=== PATIENT | female | born 1995 | race Caucasian/White ===

== ENCOUNTER 2021-01-16 06:17 | Emergency (ER) | payer BC, SELFPAY ==
[2021-01-16 06:21] VITALS: BP 160/87; PULSE 90; RESP 20; TEMP 36.6; O2SAT 99
--- NOTE | 2021-01-16 07:04 | ED.EYEPROB ---
HPI - Eye Problem General Chief complaint: Eye Problems Stated complaint: eye swollen Time Seen by Provider: 01/16/21 07:03 Source: patient Mode of arrival: ambulatory Limitations: no limitations History of Present Illness HPI Narrative: Patient is a 25-year-old female who reports to the emergency department for evaluation of left eye irritation. Patient states she had a large bump by her left eye which has now progressed to swelling and to around the left eye and left cheek. She reports redness. No current drainage from the site. Patient has a history of skin infection in the past and required antibiotics. Patient seen previous to this at [facility], states she had a inflamed follicle and was discharged home. Patient denies fever, chills, nausea or vomiting. No current shortness of breath. She is able to swallow. No vision changes. Related Data Allergies Allergy/AdvReac Type Severity Reaction Status Date / Time No Known Allergies Allergy Verified 01/16/21 06:26 Review of Systems Review of Systems: Narrative: CONSTITUTIONAL: Denies fever CARDIOVASCULAR: Denies chest pain RESPIRATORY: Denies cough or dyspnea. GASTROINTESTINAL: Denies abdominal pain SKIN: Denies rash, reports lesion on the outside of the left eye, reports facial swelling MUSCULOSKELETAL: Denies back pain NEUROLOGIC: Denies headache [facility] Social History Social History (Updated 01/16/21 @ 07:29 by Aleena Fernandez MD) Alcohol intake: never Substance use: current Substance use type: marijuana Gender identity (if verbalized by the patient): Female Exam Narrative: Exam Narrative: GENERAL: Awake, alert, conversant HEAD: Normocephalic, atraumatic. EYES: PERRLA and EOMI. indurated area approximately 1.5 cm lateral to the left eye, minimal erythema, mild left-sided facial edema, without erythema, no purulent discharge ENT: Nares clear, no rhinorrhea or epistaxis. Mucous membranes moist. NECK: Supple. CHEST: No respiratory distress, breathing even and non labored HEART: Regular rate, sinus rhythm ABDOMEN:Non distended, non tender EXTREMITIES: Normal range of motion. No edema. SKIN: Warm, dry, no rash. NEURO:No focal deficits. Alert and oriented x3 Course Vital Signs Vital signs: Vital Signs Temperature 36.6 C 01/16/21 06:21 Pulse Rate 90 01/16/21 06:21 Respiratory Rate 20 01/16/21 06:21 Blood Pressure 160/87 H 01/16/21 06:21 Pulse Oximetry 99 01/16/21 06:21 Temperature 36.6 C 01/16/21 06:21 Pulse Rate 90 01/16/21 06:21 Respiratory Rate 20 01/16/21 06:21 Blood Pressure 160/87 H 01/16/21 06:21 Pulse Oximetry 99 01/16/21 06:21 MDM - Eye Problem MDM Narrative Medical decision making narrative: On exam, patient is presenting for irritation to the left eye that does seem most consistent with an early infection/abscess. Patient does have some mild edema of the left orbit and cheek area. No symptoms to be suggestive of preseptal or orbital cellulitis at this point. There is no current fluid collection that would require drainage. No evidence of necrotizing infection. No airway compromise or respiratory distress. After shared decision-making, we will do a watch and wait prescription with Keflex. Given the patient's history of skin infection, she has high risk for this. I did explain to the patient that this antibiotic may not cover all the bacteria that could be causing this, she did not have improvement within the next 72 hours to return for reassessment and possibly broadening of antibiotics. Patient then discharged home in stable condition. Discharge Plan Discharge Clinical Impression: Boil, face Patient Disposition: Home, Self-Care Condition: Stable Instructions: Antibiotic Form, Abscess (ED) Additional Instructions: You have no sign of severe infection at this point. Please give the antibiotic 72 hours to take effect. If you have no improvement by Friday, please contact your primar
[2021-01-16 07:41] VITALS: BP 143/83; PULSE 73; RESP 18; TEMP 36.7; O2SAT 98
== END 2021-01-16 07:42 | disposition home or self-care (01) ==
PROVIDERS: Emergency Provider Emergency Medicine; PCP Physician Assistant
DX: L02.02 Furuncle of face (principal)
CPT/HCPCS: 99283

== ENCOUNTER 2021-04-26 16:59 | Emergency (ER) | payer BC, SELFPAY ==
--- NOTE | ~2021-04-26 | XR_ITS ---
EXAMINATION: XR foot RT min 3V DATE: 04/26/2021 17:37 INDICATION: Anterior and lateral right foot pain after dog cage fell on the foot. TECHNIQUE: Dorsoplantar, two oblique and lateral views of the right foot were obtained. COMPARISON: None. FINDINGS: Alignment is normal. No fracture. Joint spaces are normal. Soft tissues are unremarkable. IMPRESSION: 1. Negative right foot radiographs. Reviewed, dictated and finalized at location A.
[2021-04-26 17:05] VITALS: BP 128/75; PULSE 106; RESP 18; TEMP 36.4; O2SAT 100
--- NOTE | 2021-04-26 17:47 | ED.GENADULT ---
HPI - General Adult General Chief complaint: Extremity Injury, Lower Stated complaint: RT FOOT PAIN Time Seen by Provider: 04/26/21 17:08 Source: patient Mode of arrival: ambulatory Limitations: no limitations History of Present Illness HPI narrative: Patient presents with chief complaint of pain to the anterior aspect of her right foot that began earlier today when her foot was prescribed cage. Patient reports pain with plantar and dorsiflexion. Patient denies any other injuries. Patient denies prior fractures to the area. Related Data Allergies Allergy/AdvReac Type Severity Reaction Status Date / Time No Known Allergies Allergy Verified 04/26/21 17:07 Review of Systems Review of Systems: CONSTITUTIONAL: Denies fever, chills, or sweats. EYES: Denies visual changes, redness, or discharge. ENT: Denies rhinorrhea, congestion, sore throat, or otalgia. CARDIOVASCULAR: Denies chest pain, palpitations, or edema. RESPIRATORY: Denies cough or dyspnea. GASTROINTESTINAL: Denies abdominal pain, nausea, vomiting, or diarrhea. GENITOURINARY: Denies dysuria or hematuria. SKIN: Denies rash or itching. MUSCULOSKELETAL: Reports right foot pain denies back pain, joint pain, or myalgia. NEUROLOGIC: Denies headache, numbness, dizziness, or weakness. PSYCHIATRIC: Denies anxiety or depression. [facility] Social History Social History (Updated 01/16/21 @ 07:29 by Aleena Fernandez MD) Alcohol intake: never Substance use: current Substance use type: marijuana Gender identity (if verbalized by the patient): Female Exam Narrative: GENERAL: Well-appearing, well-nourished, and in no acute distress. HEAD: Normocephalic, atraumatic. EYES: PERRLA and EOMI. CHEST: Clear to auscultation. No respiratory distress. No wheezes rales or rhonchi HEART: Regular rate and rhythm. No murmur heard. Normal peripheral pulses. EXTREMITIES: No open wounds or lacerations. Tenderness to palpation to the dorsal aspect of the right foot. Patient reports pain with plantar and dorsiflexion causing decreased range of motion. No deformities noted. SKIN: Warm, dry, no rash. NEURO: No focal deficits. Alert and oriented x3. PSYCH: Normal mood and affect. Course Vital Signs Vital signs: Vital Signs Temperature 97.5 F L 04/26/21 17:05 Pulse Rate 106 H 04/26/21 17:05 Respiratory Rate 18 04/26/21 17:05 Blood Pressure 128/75 04/26/21 17:05 Pulse Oximetry 100 04/26/21 17:05 Temperature 97.5 F L 04/26/21 17:05 Pulse Rate 106 H 04/26/21 17:05 Respiratory Rate 18 04/26/21 17:05 Blood Pressure 128/75 04/26/21 17:05 Pulse Oximetry 100 04/26/21 17:05 Medical Decision Making MDM Narrative Medical decision making narrative: No signs of fracture. Patient diagnosed with contusion. Patient instructed to elevate and take Tylenol ibuprofen for discomfort. Patient instructed to follow-up with primary care if symptoms persist. Vital Signs Vital Signs: Vital Signs Temperature 97.5 F L 04/26/21 17:05 Pulse Rate 106 H 04/26/21 17:05 Respiratory Rate 18 04/26/21 17:05 Blood Pressure 128/75 04/26/21 17:05 Pulse Oximetry 100 04/26/21 17:05 Temperature 97.5 F L 04/26/21 17:05 Pulse Rate 106 H 04/26/21 17:05 Respiratory Rate 18 04/26/21 17:05 Blood Pressure 128/75 04/26/21 17:05 Pulse Oximetry 100 04/26/21 17:05 Imaging Data Radiologist's impression: ITS Impressions Foot X-Ray 04/26/21 17:41 IMPRESSION: 1. Negative right foot radiographs. Discharge Plan Discharge Clinical Impression: Contusion of right foot Patient Disposition: Home, Self-Care Condition: Stable Instructions: Antibiotic Form, Foot Contusion (ED) Additional Instructions: Take tylenol and ibuprofen OTC as directed if you can tolerate them. Apply cool compress to areas of swelling discomfort. You may apply warm moist compresses and gentle stretching as well. Avoid overuse. Follow-up with your primary care for
== END 2021-04-26 18:23 | disposition home or self-care (01) ==
PROVIDERS: Emergency Provider Emergency Medicine; PCP Physician Assistant
DX: S90.31XA Contusion of right foot, initial encounter (principal); W20.8XXA Other cause of strike by thrown, projected or falling object, initial encounter
CPT/HCPCS: 73630; 99283

== ENCOUNTER 2021-12-26 15:43 | Emergency (ER) | payer BC, MEDICAID, SELFPAY ==
--- NOTE | ~2021-12-26 | US_ITS ---
EXAMINATION: US OB <=14 wk fetus w TV INDICATION: R sided pelvic pain with VB r/o torsion/ectopic TECHNIQUE: Sonography of the pelvis was performed by transabdominal and transvaginal techniques. COMPARISON: None. RESULT: Uterus: - Orientation: Anteverted - Size: 9.7 x 5.5 x 4.4 cm - Myometrium: homogeneous echogenicity . Endometrial stripe 0.6 cm. Gestation: - Intrauterine gestational sac: Not seen Right ovary: - Size : 4.3 x 2.4 x 1.7 cm - Vascular flow is present. No adnexal mass. Left ovary: - Size: 2.8 x 2.5 x 2.2 cm - Vascular flow is present. No adnexal mass. Pelvis free fluid: None. IMPRESSION: No visible intrauterine gestational sac, which may be normal in early . Failed and ectopic are not excluded. Serial beta hCGs are recommended, with follow-up ultrasound as c linically warranted. Reviewed, dictated and finalized at location K. IMPRESSION: No visible intrauterine gestational sac, which may be normal in early . Failed and ectopic are not excluded. Serial beta hCGs are recommended, with follow-up ultrasound as clinically warranted.
[2021-12-26 15:58] VITALS: BP 138/89; PULSE 94; RESP 16; TEMP 36.6; O2SAT 100
[2021-12-26 16:18] LABS: Basophils Absolute Auto 0.1 K/mm3 (0.0-0.1); Basophils Percent Auto 0.5 % (0.2-1.2); Eosinophils Absolute Auto 0.1 K/mm3 (0-0.3); Eosinophils Percent Auto 1.4 % (0-4.4); Hemoglobin 15.5 g/dL (12.0-15.0); Immature Granulocyte Absolute 0.04 K/mm3 (0.00-0.031); Immature Granulocyte Percent A 0.4 % (0-0.5); Lymphocytes Absolute Auto 1.93 K/mm3 (0.9-3.2); Mean Corpuscular HGB Conc 34.4 g/dl (32-36); Mean Corpuscular Hemoglobin 30.4 pg (26-34); Mean Corpuscular Volume 88.2 fl (80-100); Mean Platelet Volume 10.2 fl (7.4-10.4); Monocytes Absolute Auto 0.3 K/mm3 (0.1-0.6); Monocytes Percent Auto 3.7 % (2.6-8.5); Neutrophils Absolute Auto 6.7 K/mm3 (1.3-6.7); Platelet Count Result 209 k/mm3 (150-375); Red Cell Distribution Width 13.3 % (11.5-14.5); White Blood Count 9.2 K/mm3 (4.5-10.0)
[2021-12-26 16:29] LABS: Add Urine Microscopic? YES; Appearance Urine Slightly Cloudy (Clear); Bilirubin Urine Negative (Negative); Blood Urine 3+ (Negative); Color Urine Red (Yellow); Glucose Urine UA Negative (Negative); Ketones Urine Negative (Negative); Leukocyte Esterase Ur Trace LEU/UL (Negative); Nitrate Urine Negative (Negative); Protein Urine 1+ mg/dL (Negative); Urobilinogen Urine 0.2 mg/dL (<2.0); pH Urine 7.5 (5.0-9.0)
[2021-12-26 16:37] LABS: Bacteria Urine Trace /hpf; RBC Urine >75 /hpf (0-2)
[2021-12-26 16:43] LABS: Beta HCG Quantitative 3.38 mIU/ML
--- NOTE | 2021-12-26 19:52 | PC.NURSE ---
[facility] ERP DR CAMPBELL, TYLENOL 1GM PO.
[2021-12-26] MEDS: ACETAMINOPHEN 500 MG TABLET 1000 MG PO (19:55)
[2021-12-26 19:57] VITALS: BP 142/83; PULSE 92; RESP 18; TEMP 36.8; O2SAT 99
[2021-12-26 21:03] VITALS: BP 111/69; PULSE 88; RESP 16; O2SAT 99
--- NOTE | 2021-12-26 21:30 | ED.FEMALEGU ---
HPI - Female Genitourinary General Chief complaint: Vaginal Bleeding Stated complaint: preg, vag bleeding Time Seen by Provider: 12/26/21 19:52 Source: patient History of Present Illness HPI Narrative: Patient presents with vaginal bleeding and a positive home test. Reports her last normal menstrual cycle was in October she had some mild spotting in November over the past 2 days she has had increasing pain and is passing large clots today so she came to the ER for evaluation. Her pain is primarily in her pelvis is constant is cramping no clear aggravating relieving factors, no radiation she denies any urinary symptoms. Denies any fevers, nausea, vomiting, diarrhea she took a positive home test a couple days ago Related Data Allergies Allergy/AdvReac Type Severity Reaction Status Date / Time No Known Allergies Allergy Verified 12/05/21 14:44 Review of Systems Review of Systems: CONSTITUTIONAL: Denies fever, chills, or sweats. EYES: Denies visual changes, redness, or discharge. ENT: Denies rhinorrhea, congestion, sore throat, or otalgia. CARDIOVASCULAR: Denies chest pain, palpitations, or edema. RESPIRATORY: Denies cough or dyspnea. GASTROINTESTINAL: Denies nausea, vomiting, or diarrhea. GENITOURINARY: Denies dysuria or hematuria. SKIN: Denies rash or itching. MUSCULOSKELETAL: Denies back pain, joint pain, or myalgia. NEUROLOGIC: Denies headache, numbness, dizziness, or weakness. PSYCHIATRIC: Denies anxiety or depression. [facility] Social History Social History Alcohol intake: never Substance use: current Substance use type: marijuana Gender identity (if verbalized by the patient): Female Exam Narrative: GENERAL: Well-appearing, well-nourished, and in no acute distress. HEAD: Normocephalic, atraumatic. EYES: PERRLA and EOMI. ENT: Nares clear, no rhinorrhea or epistaxis. Mucous membranes moist. NECK: Supple. No masses. No JVD CHEST: Clear to auscultation. No respiratory distress. No wheezes rales or rhonchi HEART: Regular rate and rhythm. No murmur heard. Normal peripheral pulses. ABDOMEN: Mild lower abdominal pain soft, nondistended. EXTREMITIES: Normal range of motion. No edema. SKIN: Warm, dry, no rash. NEURO: No focal deficits. Alert and oriented x3. PSYCH: Normal mood and affect. Course Reevaluation(s) Reevaluation #1: Patient resting comfortably results and plan reviewed with patient. Patient is comfortable outpatient plan. Date: 12/26/21 Time: 21:34 Vital Signs Vital signs: Vital Signs Temperature 36.6 C 12/26/21 15:58 Pulse Rate 94 12/26/21 15:58 Respiratory Rate 16 12/26/21 15:58 Blood Pressure 138/89 12/26/21 15:58 Pulse Oximetry 100 12/26/21 15:58 Oxygen Delivery Room Air 12/26/21 15:58 Temperature 36.8 C 12/26/21 19:57 Pulse Rate 88 12/26/21 21:03 Respiratory Rate 16 12/26/21 21:03 Blood Pressure 111/69 12/26/21 21:03 Pulse Oximetry 99 12/26/21 21:03 Oxygen Delivery Room Air 12/26/21 19:57 MDM - Female Genitourinary MDM Narrative Medical decision making narrative: H&P as above, vss, pt looks clinically well, exam with nonacute abdomen, labs low hCG UA with large amount of blood, img without acute process, additional labs/img considered, symptomatic relief available as needed, on reevaluation pt continues to looks clinically well. Suspect spontaneous miscarriage, dns significant hemorrhage, ectopic, torsion, severe sepsis plan to tx/monitor as op w/ pcm f/u findings/plan discussed with pt, pt agree/comfortable with plan, return precautions given Lab Data Result diagrams: 12/26/21 16:10 Labs: Lab Results 12/26/21 12/26/21 12/26/21 Range/Units 16:10 16:10 16:16 WBC 9.2 (4.5-10.0) K/mm3 RBC 5.10 (4.2-5.4) M/mm3 Hgb 15.5 H (12.0-15.0) g/dL Hct 45.0 (37.0-47.0) % MCV 88.2 (80-100) fl MCH 30.4 (26-34) pg MCHC 34.4 (32
== END 2021-12-26 21:52 | disposition home or self-care (01) ==
PROVIDERS: Emergency Provider Emergency Medicine; PCP Physician Assistant
DX: O03.9 Complete or unspecified spontaneous abortion without complication (principal); R10.30 Lower abdominal pain, unspecified
CPT/HCPCS: 36415; 76801; 76817; 81001; 81025; 84702; 85025; 85461; 87086; 99284; A9270

== ENCOUNTER 2022-02-07 17:31 | Outpatient (CLI) | payer BC, MEDICAID, SELFPAY | END 2022-02-07 17:32 | disposition home or self-care (01) | LOC: ANHLAB 17:34 | PROVIDERS: PCP Physician Assistant; Visit Provider Obstetrics & Gynecology | DX: N92.6 Irregular menstruation, unspecified (principal) | CPT/HCPCS: 36415; 84702 ==

== ENCOUNTER 2022-02-11 17:24 | Outpatient (CLI) | payer BC, MEDICAID, SELFPAY | END 2022-02-11 17:25 | disposition home or self-care (01) | PROVIDERS: PCP Physician Assistant; Visit Provider Obstetrics & Gynecology | DX: N92.6 Irregular menstruation, unspecified (principal) | CPT/HCPCS: 36415; 84702 ==

== ENCOUNTER 2022-05-07 03:49 | Emergency (ER) | payer MEDICAID, SELFPAY ==
[2022-05-07] VITALS (12 sets, daily range): BP systolic 107–142; BP diastolic 58–82; PULSE 64–90; RESP 15–21; O2SAT 96–99
[2022-05-07] MEDS: SODIUM CHLORIDE 0.9% IV 1,000 ML 999 ML IV CONT (04:21)
[2022-05-07 04:34] LABS: Basophils Absolute Auto 0.1 K/mm3 (0.0-0.1); Basophils Percent Auto 0.4 % (0.2-1.2); Eosinophils Absolute Auto 0.1 K/mm3 (0-0.3); Eosinophils Percent Auto 1.1 % (0-4.4); Hematocrit 38.5 % (37.0-47.0); Hemoglobin 13.9 g/dL (12.0-15.0); Immature Granulocyte Absolute 0.07 K/mm3 (0.00-0.031); Immature Granulocyte Percent A 0.6 % (0-0.5); Lymphocytes Absolute Auto 3.06 K/mm3 (0.9-3.2); Lymphocytes Percent Auto 24.1 % (18.3-44.2); Mean Corpuscular HGB Conc 36.1 g/dl (32-36); Mean Corpuscular Hemoglobin 31.8 pg (26-34); Mean Corpuscular Volume 88.1 fl (80-100); Mean Platelet Volume 10.6 fl (7.4-10.4); Monocytes Absolute Auto 0.6 K/mm3 (0.1-0.6); Monocytes Percent Auto 4.7 % (2.6-8.5); Neutrophils Absolute Auto 8.8 K/mm3 (1.3-6.7); Neutrophils Percent Auto 69.1 % (45.5-73.1); Platelet Count Result 212 k/mm3 (150-375); Red Blood Count 4.37 M/mm3 (4.2-5.4); Red Cell Distribution Width 13.4 % (11.5-14.5); White Blood Count 12.7 K/mm3 (4.5-10.0)
[2022-05-07 04:35] LABS: Appearance Urine Clear (Clear); Bilirubin Urine Negative (Negative); Blood Urine 1+ (Negative); Color Urine Yellow (Yellow); Glucose Urine UA Negative (Negative); Ketones Urine Negative (Negative); Leukocyte Esterase Ur 1+ LEU/UL (Negative); Nitrate Urine Negative (Negative); Protein Urine Negative (Negative); Urobilinogen Urine 0.2 mg/dL (<2.0)
--- NOTE | 2022-05-07 04:36 | ED.GENADULT ---
HPI - General Adult General Chief complaint: Abdominal Pain Stated complaint: 18 weeks abd cramping and migraine Time Seen by Provider: 05/07/22 03:59 History of Present Illness HPI narrative: 26-year-old female that is A2, that is approximately 18 weeks presents to the emergency department for evaluation of migraine and hypertension. Patient has been having close follow-up with her HEAD BOOKKEEPER and noticed over the last few weeks that her blood pressure has been running high. Patient states tonight at work she noticed her blood pressure was high and she is having a migraine headache. Patient does have a history of migraines but since she became the medications were stopped. Patient has been taking the vitamin and magnesium for headaches. Patient is also complaining of some abdominal cramping but denies any vaginal bleeding or discharge. Patient follows up Dr. Mcneil Related Data Allergies Allergy/AdvReac Type Severity Reaction Status Date / Time No Known Allergies Allergy Verified 05/07/22 04:06 Review of Systems Review of Systems: CONSTITUTIONAL: Denies fever, chills, or sweats. EYES: Denies visual changes, redness, or discharge. ENT: Denies rhinorrhea, congestion, sore throat, or otalgia. CARDIOVASCULAR: Denies chest pain, palpitations, or edema. RESPIRATORY: Denies cough or dyspnea. GASTROINTESTINAL: Abdominal cramping. GENITOURINARY: Denies dysuria or hematuria. SKIN: Denies rash or itching. MUSCULOSKELETAL: Denies back pain, joint pain, or myalgia. NEUROLOGIC: Migraine headache PMFSH Past Medical History Medical History Encounter for IUD insertion 04/30/17 Mirena insertion Encounter for IUD removal 02/09/18 Mirena removal Family History Family History Father Heart disease Hypertension Alcohol abuse Mother Hypertension Diabetes mellitus Cerebrovascular accident Grandparent Diabetes mellitus paternal grandfather maternal grandmother Social History Social History (Updated 02/27/22 @ 16:03 by Makayla Givens MA) Smoking packs per day: 0.25 Smoking cigarettes per day: 5.0 Smoking status: Current some day smoker Tobacco type: cigarettes Alcohol intake: never Substance use: former Substance use type: marijuana Last use: 08/04/2020 Additional living arrangements comments: Additional occupation/education comments: RN Gender identity (if verbalized by the patient): Female Sexual Orientation (if Verbalized by the Patient): Straight or Heterosexual Exam Narrative: APPEARANCE: Well appearing, no pain, no distress, well-nourished. HEAD: normocephalic, atraumatic. EYES: PERRLA/EOMI, conjunctivae clear. NOSE: Normal no drainage NECK: Supple. No adenopathy, no masses. RESPIRATORY: Airway patent, respirations nonlabored. Clear to auscultation bilaterally, no rales, rhonchi, wheezing. CARDIOVASCULAR: Regular rate and rhythm without murmurs rubs or gallops. ABDOMINAL: Soft, nontender, nondistended, normal bowel sounds MUSCULOSKELETAL: Moves all extremities. Strength/ROM intact, No edema, No calf tenderness. NEURO: Alert. Cranial nerves II through XII intact. Grossly intact SKIN: Warm, dry. Normal Color Course Course Emergency Course: Patient's blood pressure improved during her stay in the emergency department. Patient's liver enzymes were not elevated. Patient did have a mild leukocytosis of 12.7. Patient was treated with normal saline. No evidence of urinary tract infection. Urine culture is pending. Patient was encouraged to have close follow-up with her primary care physician and with her HEAD BOOKKEEPER as scheduled. All questions and concerns were addressed. Vital Signs Vital signs: Vital Signs Pulse Rate 90 05/07/22 03:59 Respiratory Rate 15 05/07/22 03:59 Blood Pressure 142/82 H 05/07/22 03:59 Pulse Oximetry 99 10
[2022-05-07 04:41] LABS: Bacteria Urine Trace /hpf; Mucus Urine Rare /lpf; RBC Urine 0-2 /hpf (0-2); Squamous Epithelial Cell Urine Few /hpf (Few); Transitional Epi Cells Urine Rare /hpf (None Seen)
[2022-05-07 04:44] LABS: Alanine Aminotransferase 20 U/L (6-35); Alkaline Phosphatase 65 U/L (38-126); Anion Gap 9 mmol/L (8-16); Aspartate Amino Transferase 21 U/L (14-36); Bilirubin,Total 0.2 mg/dL (0.2-1.3); Blood Urea Nitrogen 8 mg/dL (7-17); Carbon Dioxide 22 mmol/L (22-30); Chloride 101 mmol/L (98-107); Estimated CRCL calculation 128 ml/min; Estimated Glomerular Filt Rate > 60; Glucose 108 mg/dL (65-110); Potassium 3.2 mmol/L (3.4-5.0); Sodium 132 mmol/L (137-145)
[2022-05-07 04:47] LABS: Add Urine Microscopic? YES
[2022-05-07] MEDS: POTASSIUM CHLORIDE 20 MEQ PACKET (FOR LIQUID) 40 MEQ PO (05:44)
== END 2022-05-07 06:58 | disposition home or self-care (01) ==
PROVIDERS: Emergency Provider Emergency Medicine; PCP Physician Assistant
DX: O26.892 Other specified pregnancy related conditions, second trimester (principal); R51.9 Headache, unspecified; R10.9 Unspecified abdominal pain; Z3A.18 18 weeks gestation of pregnancy; Z87.891 Personal history of nicotine dependence
CPT/HCPCS: 36415; 80053; 81001; 85025; 87086; 87088; 96361; 96365; 99284; A9270; J0131; J7030

== ENCOUNTER 2022-08-12 22:52 | Observation (INO) | payer OTHER, SELFPAY ==
[2022-08-12 23:18] VITALS: BP 123/65; PULSE 105
[2022-08-12 23:30] VITALS: BP 131/68; PULSE 106; BMI 37.7
[2022-08-12 23:36] LABS: Basophils Percent Auto 0.2 % (0.2-1.2); Eosinophils Absolute Auto 0.1 K/mm3 (0-0.3); Eosinophils Percent Auto 0.4 % (0-4.4); Hematocrit 34.3 % (37.0-47.0); Hemoglobin 11.7 g/dL (12.0-15.0); Immature Granulocyte Absolute 0.08 K/mm3 (0.00-0.031); Immature Granulocyte Percent A 0.7 % (0-0.5); Lymphocytes Percent Auto 14.8 % (18.3-44.2); Mean Corpuscular HGB Conc 34.1 g/dl (32-36); Mean Corpuscular Hemoglobin 30.6 pg (26-34); Mean Corpuscular Volume 89.8 fl (80-100); Mean Platelet Volume 10.5 fl (7.4-10.4); Monocytes Absolute Auto 0.5 K/mm3 (0.1-0.6); Monocytes Percent Auto 3.7 % (2.6-8.5); Neutrophils Absolute Auto 9.8 K/mm3 (1.3-6.7); Neutrophils Percent Auto 80.2 % (45.5-73.1); Platelet Count Result 190 k/mm3 (150-375); Red Blood Count 3.82 M/mm3 (4.2-5.4); Red Cell Distribution Width 13.8 % (11.5-14.5); White Blood Count 12.2 K/mm3 (4.5-10.0)
[2022-08-12 23:37] LABS: Add Urine Microscopic? YES; Appearance Urine Clear (Clear); Bilirubin Urine Negative (Negative); Blood Urine Trace-Intact (Negative); Color Urine Yellow (Yellow); Glucose Urine UA Negative (Negative); Ketones Urine Trace mg/dL (Negative); Leukocyte Esterase Ur 1+ LEU/UL (NEGATIVE); Nitrate Urine Negative (Negative); Protein Urine Trace mg/dL (Negative); Specific Grav Ur 1.015 (1.001-1.035); Urobilinogen Urine 0.2 mg/dL (<2.0)
[2022-08-12 23:46] VITALS: BP 110/44; PULSE 102
[2022-08-12 23:54] LABS: Alanine Aminotransferase 17 U/L (6-35); Albumin Level 3.7 g/dL (3.5-5.1); Alkaline Phosphatase 118 U/L (38-126); Anion Gap 6 mmol/L (8-16); Aspartate Amino Transferase 21 U/L (14-36); Bilirubin,Total 0.3 mg/dL (0.2-1.3); Blood Urea Nitrogen 6 mg/dL (7-17); Calcium 8.5 mg/dL (8.4-10.2); Carbon Dioxide 20 mmol/L (22-30); Chloride 109 mmol/L (98-107); Estimated Glomerular Filt Rate > 60; Glucose 104 mg/dL (65-110); Potassium 3.2 mmol/L (3.4-5.0); Sodium 135 mmol/L (137-145); Uric Acid 4.3 mg/dL (2.5-7.5)
[2022-08-13] LABS: Creatinine Urine 166.2 mg/dL; Total Protein Urine Random 14 mg/dL; Ur Ttl Prot Creatinine Ratio 0.08 mg/mg (0-0.20)
[2022-08-13 00:01] VITALS: BP 96/25; PULSE 94
[2022-08-13 00:11] LABS: Bacteria Urine Trace /hpf; Mucus Urine Rare /lpf; Squamous Epithelial Cell Urine Many /hpf (Few)
[2022-08-13 00:15] VITALS: BP 117/65; PULSE 91
--- NOTE | 2022-08-13 00:17 | OBADM ---
This patient, Rosa Nevarez, admitted to the OB room OB Post 117 for observation. Patient/family oriented to hospital policies and general routines including ID bracelet, bed and alarms, visiting hours, pain management, procedures, bathroom and other care routines, personal items, smoking policy, room service/diet, and visiting hours. Patient/Family are encouraged to report perceived risks to care and to ask questions if they do not understand what they are told or what they should do.
--- NOTE | 2022-09-06 10:45 | PM.OBTRLD ---
OB - Triage/Final Diagnosis Visit Information Comments/Additional reasons for admission: I have assessed the risk for this patient, Rosa Nevarez, and determined that she would benefit from observation care. Evaluation Laboratory results: Laboratory Tests 08/12/22 08/12/22 08/12/22 23:17 23:17 23:17 WBC 12.2 H RBC 3.82 L Hgb 11.7 L Hct 34.3 L MCV 89.8 MCH 30.6 MCHC 34.1 RDW 13.8 Plt Count 190 MPV 10.5 H Immature Gran % (Auto) 0.7 H Neut % (Auto) 80.2 H Lymph % (Auto) 14.8 L [place] % (Auto) 3.7 Eos % (Auto) 0.4 Baso % (Auto) 0.2 Lymph # (Auto) 1.80 [place] # (Auto) 0.5 Eos # (Auto) 0.1 Baso # (Auto) 0.0 Abs Immat Gran (auto) 0.08 H Absolute Neuts (auto) 9.8 H Absolute Nucleated RBC 0.0 Nucleated RBC % 0.0 Sodium Potassium Chloride Carbon Dioxide Anion Gap BUN Creatinine Estim Creat Clear Calc Estimated GFR Glucose Uric Acid Calcium Total Bilirubin AST ALT Alkaline Phosphatase Total Protein Albumin Urine Color Yellow Urine Appearance Clear Urine pH 7.0 Ur Specific [place] 1.015 Urine Protein Trace Urine Glucose (UA) Negative Urine Ketones Trace Ur Blood (Man) Trace-intact Urine Nitrate Negative Urine Bilirubin Negative Urine Urobilinogen 0.2 Ur Leukocyte Esterase 1+ H Urine RBC 6-10 H Urine WBC 10-15 H Ur Squamous Epith Cells Many H Urine Bacteria Trace Urine Mucus Rare U Random Total Protein 14 Urine Creatinine 166.2 Protein/Creat Ratio 2 0.08 08/12/22 23:17 WBC RBC Hgb Hct MCV MCH MCHC RDW Plt Count MPV Immature Gran % (Auto) Neut % (Auto) Lymph % (Auto) [place] % (Auto) Eos % (Auto) Baso % (Auto) Lymph # (Auto) [place] # (Auto) Eos # (Auto) Baso # (Auto) Abs Immat Gran (auto) Absolute Neuts (auto) Absolute Nucleated RBC Nucleated RBC % Sodium 135 L Potassium 3.2 L Chloride 109 H Carbon Dioxide 20 L Anion Gap 6 L BUN 6 L Creatinine 0.60 L Estim Creat Clear Calc Not Reportable Estimated GFR > 60 Glucose 104 Uric Acid 4.3 Calcium 8.5 Total Bilirubin 0.3 AST 21 ALT 17 Alkaline Phosphatase 118 Total Protein 7.0 Albumin 3.7 Urine Color Urine Appearance Urine pH Ur Specific [place] Urine Protein Urine Glucose (UA) Urine Ketones Ur Blood (Man) Urine Nitrate Urine Bilirubin Urine Urobilinogen Ur Leukocyte Esterase Urine RBC Urine WBC Ur Squamous Epith Cells Urine Bacteria Urine Mucus U Random Total Protein Urine Creatinine Protein/Creat Ratio 2 Final Diagnosis (1) Headache: Code(s): R51.9 - Headache, unspecified Status: Acute
== END 2022-08-13 00:35 | disposition home or self-care (01) ==
PROVIDERS: Admitting Provider Obstetrics & Gynecology; PCP Physician Assistant; Visit Provider Obstetrics & Gynecology
DX: O26.893 Other specified pregnancy related conditions, third trimester (principal); R51.9 Headache, unspecified; O16.3 Unspecified maternal hypertension, third trimester; Z3A.32 32 weeks gestation of pregnancy
CPT/HCPCS: 36415; 80053; 81001; 82570; 84156; 84550; 85025; 87086; 87088; G0378; G0379

== ENCOUNTER 2022-08-30 10:28 | Outpatient (RCR) | payer OTHER, SELFPAY ==
[2022-08-30 11:50] VITALS: BP 129/69; PULSE 93
== END 2022-10-19 19:51 | disposition home or self-care (01) ==
LOC: ANHOBOP 10:28
PROVIDERS: PCP Physician Assistant; Visit Provider Obstetrics & Gynecology
DX: O36.8330 Maternal care for abnormalities of the fetal heart rate or rhythm, third trimester, not applicable or unspecified (principal); Z3A.35 35 weeks gestation of pregnancy
CPT/HCPCS: 59025

== ENCOUNTER 2022-09-25 12:31 | Outpatient (CLI) | payer BC, OTHER, SELFPAY ==
[2022-09-25] VITALS (7 sets, daily range): PULSE 86–112; O2SAT 97–99
--- NOTE | ~2022-09-25 | US_ITS ---
EXAMINATION: US OB BPP wo non-stress DATE: 09/25/2022 13:49 PATIENT SERVICES CLERK INDICATION: Decreased movements. TECHNIQUE: Real-time transabdominal obstetric ultrasound. FINDINGS: 08/30/2022 There is a single living fetus in vertex presentation. The placenta is anterior without placenta pre via. Cervical length measures 6.6 cm. cardiac activity and movement is noted with a heart rate of 153 beats per minute. A mniotic fluid index is normal measuring 12.3 cm. Biophysical profile: breathin of 2 movement: 2 of 2 tone: 2 of 2 Amniotic flud pocket: 2 of 2 Total score: 8 of 8 IMPRESSION: 1. Single living intrauterine in vertex presentation. 2: Total biophysical profile score of 8/8. Reviewed, dictated and finalized at location B. ENT SERVICES CLERK
== END 2022-09-25 14:10 | disposition home or self-care (01) ==
LOC: ANHOBOP 13:02 → ANHLDR 13:03
PROVIDERS: Visit Provider Obstetrics & Gynecology
DX: O36.8190 Decreased fetal movements, unspecified trimester, not applicable or unspecified (principal); Z3A.00 Weeks of gestation of pregnancy not specified
CPT/HCPCS: 59025; 76819; 84112; 99199

== ENCOUNTER 2022-09-26 05:52 | Inpatient (IN) | payer BC, OTHER, SELFPAY ==
[2022-09-26] VITALS (95 sets, daily range): BP systolic 105–146; BP diastolic 48–87; PULSE 60–121; RESP 16–18; TEMP 36.2–37.3; O2SAT 76–100; BMI 37.4
--- OUTSIDE RECORDS SUMMARY | 2022-09-26 05:57 | XMS_ITS | Clinical Summary ---
Author Name Unknown Address [address] [place] [address] Phone Organization [facility] Address [address] [place] [address] Phone Care Team Providers Care Polymer Chemist Name Role Phone SINDI SEGURA PA-C Primary Care Provider [phone] Reason for Visit and Chief Complaint NO SHOW Problems Includes: Problems addressed during this encounter and other active Problems All Visits Onset Date Resolved Date Provider Condition S tatus Anxiety 05/24/2019 JADE GLEASON ANP-BC A ctive Plan of Treatment No Plan of Treatment Recorded Assessments Includes: Assessments from this encounter No Assessments Recorded Medical Equipment - Implanted Devices Includes: Current Devices No Medical Equipment Recorded Medications Includes: Medications discussed during this encounter and other current Medications Current Medications (continue as prescribed) Cymbalta 60 MG Oral Capsule Delayed Release Particles 06/18/2019 Provider: JADE DUNN ANP-BC Diagnosis: Chronic pain syn drome 1 capsule daily HYDROcodone-Acetaminophen 7.5-325 MG Oral Tablet 05/24 Provider: Diagnosis:
--- OUTSIDE RECORDS SUMMARY | 2022-09-26 05:57 | XMS_ITS | Clinical Summary ---
Author Name Unknown Address [address] [place] [address] Phone Organization [facility] Address [address] [place] [address] Phone Care Team Providers Care Warehouse Trainer Name Role Phone SINDI SEGURA PA-C Primary Care Provider [phone] Reason for Visit and Chief Complaint PAIN MANAGEMENT FOLLOW UP Problems Includes: Problems addressed during this encounter [...]
--- OUTSIDE RECORDS SUMMARY | 2022-09-26 05:57 | XMS_ITS ---
Care Plan - [facility] Created on: September 26, 2022 TAJ KENNEDY : 1995 Sex: Female Author Name Unknown Address [address] [place] [address] Phone Organization [facility] Address [address] [place] [address] Phone Care Team Providers Care Grinding Machine Operator Name Role Phone SINDI SEGURA PA-C Primary Care Provider [phone]
--- OUTSIDE RECORDS SUMMARY | 2022-09-26 05:57 | XMS_ITS | Clinical Summary ---
Author Name Unknown Address [address] [place] [address] Phone Organization [facility] Address [address] [place] [address] Phone Care Team Providers Care Wildfire Prevention Specialist Name Role Phone SINDI SEGURA PA-C Primary Care Provider [phone] Reason for Visit and Chief Complaint * PHONE CALL Problems Includes: Problems addressed during this encounter and other active Problems All Visits Onset Date Resolved Date Provider Condition S tatus Anxiety 05/24/2019 JADE MCKEON A ctive Plan of Treatment No Plan of Treatment Recorded Assessments Includes: Assessments from this encounter No Assessments Recorded Medical Equipment - Implanted Devices Includes: Current Devices No Medical Equipment Recorded Medications Includes: Medications discussed during this encounter and other current Medications Discontinued / Stopped on this date JADE MCKEON on 05/24/2019 Cymbalta 30 MG Oral Capsule Delayed Release Particles Provider: JADE MILLANBC Diagnosis: Chronic pain syn drome New / Renewed during this visit JADE MCKEON on 06/18/2019
--- OUTSIDE RECORDS SUMMARY | 2022-09-26 05:57 | XMS_ITS | Clinical Summary ---
Author Name Unknown Address [address] [place] [address] Phone Organization [facility] Address [address] [place] [address] Phone Care Team Providers Care Graining Operator Name Role Phone SINDI SEGURA PA-C Primary Care Provider [phone] Reason for Visit and Chief Complaint * [...]
--- OUTSIDE RECORDS SUMMARY | 2022-09-26 05:57 | XMS_ITS | Clinical Summary ---
Author Name Unknown Address [address] [place] [address] Phone Organization [facility] Address [address] [place] [address] Phone Care Team Providers Care Financial Planning Adviser Name Role Phone SINDI SEGURA PA-C Primary Care Provider [phone] Reason for Visit and Chief Complaint * [...]
[2022-09-26 06:36] LABS: Basophils Percent Auto 0.4 % (0.2-1.2); Eosinophils Absolute Auto 0.1 K/mm3 (0-0.3); Eosinophils Percent Auto 0.9 % (0-4.4); Hematocrit 34.8 % (37.0-47.0); Hemoglobin 12.1 g/dL (12.0-15.0); Immature Granulocyte Absolute 0.05 K/mm3 (0.00-0.031); Immature Granulocyte Percent A 0.5 % (0-0.5); Lymphocytes Absolute Auto 2.47 K/mm3 (0.9-3.2); Lymphocytes Percent Auto 23.6 % (18.3-44.2); Mean Corpuscular HGB Conc 34.8 g/dl (32-36); Mean Corpuscular Hemoglobin 31.1 pg (26-34); Mean Corpuscular Volume 89.5 fl (80-100); Mean Platelet Volume 10.3 fl (7.4-10.4); Monocytes Absolute Auto 0.4 K/mm3 (0.1-0.6); Monocytes Percent Auto 3.3 % (2.6-8.5); Neutrophils Absolute Auto 7.5 K/mm3 (1.3-6.7); Neutrophils Percent Auto 71.3 % (45.5-73.1); Platelet Count Result 202 k/mm3 (150-375); Red Blood Count 3.89 M/mm3 (4.2-5.4); Red Cell Distribution Width 13.9 % (11.5-14.5); White Blood Count 10.5 K/mm3 (4.5-10.0)
[2022-09-26] MEDS: LACTATED RINGERS 1,000 ML 125 ML IV CONT ×2 (06:40→12:15)
[2022-09-26] MEDS: OXYTOCIN 30 UNITS/NS 500 ML 30 UNITS/500 ML BAG IV CONT (06:47)
--- NOTE | 2022-09-26 06:50 | LDADM ---
This patient, Rosa Nevarez, was admitted to Labor/Delivery/Recovery 104 on 09/26/22 at 05:52. Plans for labor, pain management and were discussed with patient. Patient/family oriented to hospital policies and general routines including ID bracelet, bed and alarms, visiting hours, pain management, procedures, bathroom and other care routines, personal items, smoking policy, room service/diet and guest tray routines, security routines, and visiting hours. Patient/Family are encouraged to report perceived risks to care and to ask questions if they do not understand what they are told or what they should do. See OBIX for further documentation.
[2022-09-26] MEDS: fentaNYL CITRATE INJ (*CRX) 100 MCG/2 ML VIAL 50 MCG IV PUSH ×2 (08:59→10:06)
[2022-09-26] MEDS: LACTATED RINGERS 1,000 ML 999 ML IV CONT ×2 (10:14→10:39)
--- NOTE | 2022-09-26 10:41 | WPDANESEPP ---
Anes - Eval Pre Procedure Procedure: labor epidural Date/Time: 09/26/22 10:41 Preop Diagnosis: labor pain Pre Op Diagnosis: IOL Patient Data Age: 26 Gender: F Height: 1.68 m Weight: 105.3 kg Last Vital Signs Temp 36.5 C 09/26/22 10:37 Pulse 84 09/26/22 10:38 BP 136/79 09/26/22 10:38 Pulse Ox 100 09/26/22 10:41 O2 Del Method Room Air 09/26/22 06:30 Allergies Allergy/AdvReac Type Severity Reaction Status Date / Time No Known Allergies Allergy Verified 09/24/22 10:16 Home Medications Medication Instructions Recorded Confirmed Type metoclopramide HCl 10 mg tablet 10 mg PO Q6H PRN nausea and 02/27/22 09/26/22 Rx (Reglan) vomiting #40 tabs magnesium oxide 400 mg (241.3 mg 400 mg PO DAILY #90 tabs 04/05/22 09/26/22 Rx magnesium) tablet riboflavin (vitamin B2) 400 mg 400 mg PO DAILY #90 tabs 04/05/22 09/26/22 Rx tablet ondansetron 4 mg disintegrating 4 mg PO Q8H PRN nausea and 08/14/22 09/26/22 Rx tablet vomiting #20 tabs albuterol sulfate 90 mcg/actuation 2 puff inhalation QID PRN Wheezing 09/21/22 09/24/22 History aerosol inhaler prenat.vits,jennifer,[id number] 1 tablet PO HS 09/21/22 09/24/22 History sumatriptan succinate 50 mg tablet 50 mg PO ONCE 09/21/22 09/26/22 History (Imitrex) Laboratory Tests 09/26/22 09/26/22 09/26/22 06:25 06:25 06:25 WBC 10.5 K/mm3 H K/mm3 (4.5-10.0) RBC 3.89 M/mm3 L M/mm3 (4.2-5.4) Hgb 12.1 g/dL g/dL (12.0-15.0) Hct 34.8 % L % (37.0-47.0) MCV 89.5 fl fl (80-100) MCH 31.1 pg pg (26-34) MCHC 34.8 g/dl g/dl (32-36) RDW 13.9 % % (11.5-14.5) Plt Count 202 k/mm3 k/mm3 (150-375) MPV 10.3 fl fl (7.4-10.4) Immature Gran % (Auto) 0.5 % % (0-0.5) Neut % (Auto) 71.3 % % (45.5-73.1) Lymph % (Auto) 23.6 % % (18.3-44.2) Arroyo % (Auto) 3.3 % % (2.6-8.5) Eos % (Auto) 0.9 % % (0-4.4) Baso % (Auto) 0.4 % % (0.2-1.2) Lymph # (Auto) 2.47 K/mm3 K/mm3 (0.9-3.2) [place]royo # (Auto) 0.4 K/mm3 K/mm3 (0.1-0.6) Eos # (Auto) 0.1 K/mm3 K/mm3 (0-0.3) Baso # (Auto) 0.0 K/mm3 K/mm3 (0.0-0.1) Abs Immat Gran (auto) 0.05 K/mm3 H K/mm3 (0.00-0.031) Absolute Neuts (auto) 7.5 K/mm3 H K/mm3 (1.3-6.7) Absolute Nucleated RBC 0.0 K/mm3 K/mm3 (0.0-0.012) Nucleated RBC % 0.0 % % (0.0-0.2) RPR Pending Blood Type A Positive Antibody Screen Negative Patient hx anesthesia problems: none Family hx anesthesia problems: none Results Review: All pre-operative results and documents have been reviewed as part of the pre-operative evaluation. [facility] Past Medical History Medical History Abnormal glucose tolerance in Encounter for IUD insertion 04/30/17 Mirena insertion Encounter for IUD removal 02/09/18 Mirena removal Family History Family History Father Heart disease Hypertension Alcohol abuse Mother Hypertension Diabetes mellitus Cerebrovascular accident Grandparent Diabetes mellitus paternal grandfather maternal grandmother Social History Social History Smoking packs per day: 0.5 Smoking cigarettes per day: 10.0 Years smoked: 11 Smoking pack-years: 5.50 Smoking status: Current every day smoker Tobacco type: cigarettes Second hand tobacco smoke exposure: Yes Alcohol intake: never Substance use: never Substance use type: marijuana Last use: 08/04/2020 Lack of Transportation: No Lack of Food: Never True Current Housing: I Have Housing Concerned About Future Housing: No Difficulty Paying Gas/Electric Bills: No Difficulty Pay
[2022-09-26 13:09] LABS: Rapid Plasma Reagin Non-Reactive (NonReactive)
--- NOTE | 2022-09-26 14:31 | WPDHPUPDATE1 ---
History and Physical Update Update Date/Time: 09/26/22 14:31 History and Physical has been reviewed, including an updated exam of the patient. There are NO changes in the patient's condition. Risks, benefits, and alternatives have been discussed and questions answered. Patient agrees to proceed with procedure.
--- NOTE | 2022-09-26 14:31 | WPDOBADMIT ---
Obstetrics - Admit Note Admission Note: record reviewed. No pertinent additions to the history and/or any subsequent changes in the physical findings that are not consistent with the expected course of the were found. Additions to the history and/or subsequent changes in the physical findings follow. None.
--- NOTE | 2022-09-26 14:31 | PM.OBPRVD ---
OB - Delivery Note Procedure Events: Chronic Hypertension and Other ( arrhythmia) Induction method: AROM and Per Pitocin Protocol Delivery monitor: External FHT and External Uterine Route of delivery: Episiotomy description: None Laceration Description: None Specimen: No Quantitative Blood Loss (ml): 300 Anesthesia type: Epidural Complications: none Narrative: patient prepped draped in usual manner for this procedure. Maternal expulsive efforts readily delivered vertex, rest of baby delivered without difficulty. Cord was clamped and cut and placenta delivered spontaneously. Cervix vagina vulva were inspected no lacerations or tears. At this point the procedure was considered terminated with immediate postoperative condition of mother and baby both excellent. [place] Baby Weeks of gestation at delivery: 38 gender: Female Weight (pounds): 7 Weight (ounces): 11 presentation: vertex Placenta delivery description: Spontaneous Cord Vessel Description: 3 Vessels score one minute: 9 score five minutes: 9 [facility] Delivery Billing Delivery Delivery: Delivery Charge
[2022-09-26] MEDS: OXYTOCIN 30 UNITS/NS 500 ML 30 UNITS/500 ML BAG 125 UNITS IV CONT (14:35)
[2022-09-26] MEDS: METHYLERGONOVINE MALEATE 0.2 MG/ML VIAL IM (14:54)
[2022-09-26] MEDS: IBUPROFEN 600 MG TABLET PO (15:59)
--- NOTE | 2022-09-26 16:23 | OBPPTRN ---
Patient transferred to post room #284 via wheelchair. Support person present. Oriented to unit, room, information board, rooming in, admission packet and security measures. Patient verbalizes understanding.
[2022-09-26] MEDS: ACETAMINOPHEN 325 MG TABLET 650 MG PO (19:25)
[2022-09-27 00:15] VITALS: BP 129/80; PULSE 69; RESP 18; TEMP 36.3
[2022-09-27] MEDS: IBUPROFEN 600 MG TABLET PO ×3 (00:16→16:33)
[2022-09-27 04:30] VITALS: BP 99/47; PULSE 64; RESP 16; TEMP 36.8
[2022-09-27 05:06] LABS: Hematocrit 31.9 % (37.0-47.0); Hemoglobin 10.8 g/dL (12.0-15.0)
[2022-09-27 08:20] VITALS: BP 122/66; PULSE 73; RESP 16; TEMP 36.7; O2SAT 100
[2022-09-27 08:40] VITALS: PULSE 73; RESP 16; O2SAT 99
[2022-09-27] MEDS: DOCUSATE SODIUM 100 MG CAPSULE PO (08:40)
[2022-09-27] MEDS: MULTIVIT/MIN/PREN/FOL AC/IRON TABLET 1 TAB PO (08:40)
--- NOTE | 2022-09-27 08:59 | P.DS_ITS ---
DS: Admitting Diagnosis Discharge Date 09/27/2022 Admitting Diagnosis DS: Discharge Diagnosis Discharge Diagnosis (1) , delivered: Code(s): O80 - Encounter for full-term uncomplicated delivery Status: Acute OB - DS: Summary OB Procedures : None OB Procedures Intrapartum: Spontaneous Vag Delivery OB Procedures: : None Time Spent with Patient Time attestation: Total time spent providing and/or coordinating discharge services: DS: Data Data Completed and Pending Labs on day of discharge: Labs from last 24 hours 09/27/22 09/26/22 04:27 06:25 Hgb 10.8 L Hct 31.9 L RPR Non-reactive Discharge Plan Discharge Discharging Clinician: Artemio Mcneil Patient Disposition: Home, Self-Care Activity: as tolerated Diet: as tolerated Patient Instructions: Antibiotic Form Stand Alone Forms: General Discharge Information Follow-up/Referrals: Artemio Mcneil MD [Physician] - 3 Weeks Discharge Medications: New ibuprofen 600 mg Tablet 600 mg PO Q6H PRN (Reason: Cramping) Qty: 30 0RF Continued metoclopramide HCl [Reglan] 10 mg tablet 10 mg PO Q6H PRN (Reason: nausea and vomiting) Qty: 40 2RF magnesium oxide 400 mg (241.3 mg magnesium) tablet 400 mg PO DAILY Qty: 90 3RF riboflavin (vitamin B2) 400 mg tablet 400 mg PO DAILY Qty: 90 2RF sumatriptan succinate [Imitrex] 50 mg Tablet 50 mg PO ONCE #2 Tablet 1 tablet PO HS albuterol sulfate 90 mcg/actuation Hfa Aerosol Inhaler 2 puff INHALATION QID PRN (Reason: Wheezing) ondansetron 4 mg tablet,disintegrating 4 mg PO Q8H PRN (Reason: nausea and vomiting) Qty: 20 0RF Date of admission: 09/26/22 05:52 Primary Care Provider: PHYSICIAN,QUALITY MANAGER Admitting Provider: Artemio Mcneil Attending physician on admission: Artemio Mcneil Condition: Stable
[2022-09-27] MEDS: ACETAMINOPHEN 325 MG TABLET 650 MG PO (12:00)
[2022-09-27 12:09] VITALS: BP 130/67; PULSE 73; RESP 16; TEMP 36.8; O2SAT 99
[2022-09-27 12:30] VITALS: PULSE 73; RESP 16; O2SAT 99
--- NOTE | 2022-09-27 12:52 | PC.NURSE ---
Addendum entered by Yoselyn Valle RN 09/27/22 13:01: Mother states she is more confident to independently latch optimally without discomfort. Mother is feeding appropriately for growth of infant and understands stimulating to eat if needed. has had adequate feedings in the last 24 hours meets the outcomes for weight, output and jaundice at this time. Mother states she is confident to continue effectively breastfeed her infant at home, when to call for assistance and denies any additional assistance or education at this time. Reinforced understanding of milk production, transition of milk, signs of adequate intake, transition of stool, prevention/relief of engorgement, responsive watching for feeding cues, the different methods of stimulating infant to breastfeed 2-3 hours after the start of the last feeding, community resources, medication information reviewed per [employer] and when to call a provider using the resource of the mom and baby guide/[facility] website. Mother voiced understanding of the education shared. Reported to the primary RN. Original Note: [id number] Introductions were made, then consulted with patient to assess needs related to . P4 Mother led the conversation with her?plans to feed?her and the?experience so far. Resources provided for inpatient and outpatient services with the feeding sheet, mom/baby guide and name written on the white board. Mother voiced understanding of information, states she has a resource with the [facility] office and requested assistance practicing now. Mother works well with her infant with encouragement and education. Encouraged understanding of the benefits of skin to skin (demonstrating unwrapping and placing upright on her chest), stimulating with massage touch, changing positions to encourage wakefulness, how to watch for early feeding cues, responsive feeding, feeding on demand (aiming for 8-12 times in 24 hours, about every 2-3 hours), milk production, building/maintaining a milk supply, duration of feeding, signs of adequate intake/output and how to record on the feeding sheet. Hand expressed colostrum (1/2 tsp) was fed to the to encourage feeding cues. Reviewed positioning and ear, shoulder, hip alignment, supporting the breast to facilitate a deep latch, asymmetrical latch (off-center), leading with the chin with a big, open, wide gape and body close to mother. latched optimally to the left breast in football position. Education given to mother of how to visualize suck/swallow ratios and listen for drinking at the breast. was able to maintain latch without discomfort to mother. Nipple care reviewed with optimal latch and good positioning. Reviewed good handwashing when or touching the breast/nipples to prevent infection. Resources used to facilitate learning were used with the tool, mom and baby guide. Mother voiced understanding of skin to skin, stimulating with massage touch, responsive feedings, hand expressed colostrum, talking to to encourage if it has been 2 -2.5 hours since the start of the last , to call if infant does not latch, or if there is discomfort with . Resources provided for inpatient/outpatient with the feeding sheet and the mom/baby guide. Mother voiced understanding of information, demonstrated learning and will call if there is a request for assistance. Reported to the primary RN.
--- NOTE | 2022-09-27 17:42 | WPDANLDPN2 ---
Anes-Prog Note L&D Date/Time: 09/27/22 17:42 Neuro status: Neuro function grossly intact. Vital Signs: Last Vital Signs Temp 36.8 C 09/27/22 12:09 Pulse 73 09/27/22 12:30 Resp 16 09/27/22 12:30 BP 130/67 09/27/22 12:09 Pulse Ox 99 09/27/22 12:30 O2 Del Method Room Air 09/27/22 12:30 Pain score (VAS): 0 I/O: Intake & Output 09/27/22 09/27/22 09/27/22 07:59 15:59 23:59 Intake Total 740 Balance 740 Patient feedback: Patient satisfied with anesthetic care.
== END 2022-09-27 17:30 | disposition home or self-care (01) | DRG 807 ==
LOC: ANHLDR 05:55 → ANHOB2 16:53
PROVIDERS: Admitting Provider Obstetrics & Gynecology; Visit Provider Obstetrics & Gynecology
DX: O99.892 Other specified diseases and conditions complicating childbirth (principal); Z37.0 Single live birth; Z3A.38 38 weeks gestation of pregnancy; M51.36 Other intervertebral disc degeneration, lumbar region; O36.8330 Maternal care for abnormalities of the fetal heart rate or rhythm, third trimester, not applicable or unspecified
CPT/HCPCS: 36415; 85014; 85018; 85025; 86592; 86850; 86900; 86901; A9270; J2210; J2590; J2795; J3010; J7120

== ENCOUNTER 2022-11-28 00:27 | Day surgery (SDC) | payer BC, OTHER, SELFPAY ==
--- NOTE | 2022-11-18 14:00 | SUR.PREOP ---
Report to the Outpatient Waiting Room, entrance under the green pavilion located off [facility], at time 0900 on date 11/28/22. Planned Procedure Time: 1100. Time changes happen often and if your time is changed the preop area will call you the afternoon before. - You and your visitor will be asked to self-screen and do not enter if you have any COVID symptoms. - A mask is optional within the hospital at this time. Patients may have clear liquids (water, carbonated beverages, clear teas, apple juice) until 3 hours prior to surgery with a maximum of 20 ounces. - NO CLEAR LIQUIDS AFTER 0800 - No food from midnight until time of surgery - Infants may have breast milk until 4 hours before surgery, formula 6 hours prior to surgery. - Children will be allowed to drink immediately following surgery. If applicable, please bring a bottle or sippy cup to assist with drinking. Juice, water, soda, and popsicles are readily available. For infants on formula, please bring formula the day of surgery. Pacifiers are allowed. Take the following medications with a SIP of water the morning of surgery: BRING ALBUTEROL INHALER WITH YOU DAY OF SURGERY DO NOT STOP ANY OF YOUR OTHER PRESCRIPTION MEDICATIONS PRIOR TO SURGERY ?EXCEPT THE FOLLOWING Medications to discontinue per ANESTHESIA VITAMIN Date to take last dose____11/25/22 Please no make-up, nail spanish, hairspray, perfume, deodorant, or body powder the day of surgery. No jewelry (including any body piercings) or valuables the day of surgery, leave them at home. Please take a shower or bath the night before, or the morning of, surgery with an antibacterial soap. Wear comfortable, loose fitting clothing. Children are encouraged to wear pajamas. - Jewelry must be removed prior to entering the operating room. Rings and piercings that are not removed may be cut off. - The hospital will not accept responsibility for valuables. - Please leave all valuables, including medications, at home the day of surgery. If you are going home after surgery, a licensed driver education instructor must drive you home. - NO public transportation without another adult if you receive anesthesia. - We recommend that an adult stay with you for 24 hours following discharge. - We also recommend that you do not drive, make important decision, drink alcoholic beverages, or take any drugs that were not prescribed by your health care provider for at least 24 hours after your discharge time. For Pediatric surgeries, we recommend two adults accompany the child home. Follow any additional instructions given to you from your surgeon. If you or anyone in your household have experienced Covid symptoms in the past week, please notify your surgeon or the nurse liaison at the phone number below for possible testing. Telephone instructions given to TAJ KENNEDY and asked if any additional questions and then verbalized understanding. Patient advised to call surgeon office or pre surgery nurse liaison [phone] if any additional questions.
[2022-11-18 14:12] VITALS: BMI 34.7
--- NOTE | 2022-11-27 13:12 | WPDANESEPPF ---
Anes - Initial Pre Proc Eval Procedure: Operation Date: 11/28/22 10:00 Proposed Procedures p Laparoscopic Bilateral Salpingectomy - Artemio Mcneil MD Date/Time: 11/27/22 13:12 Surgeon: Artemio Mcneil MD Pre Op Diagnosis: sterilization Patient Data Age: 27 Gender: F Height: 1.68 m Weight: 97.6 kg Allergies Allergy/AdvReac Type Severity Reaction Status Date / Time No Known Allergies Allergy Verified 11/18/22 14:16 Home Medications Medication Instructions Recorded Confirmed Type albuterol sulfate 90 mcg/actuation 2 puff inhalation QID PRN Wheezing 09/21/22 11/18/22 History aerosol inhaler prenat.vits,jennifer,[id number] 1 tablet PO HS 09/21/22 11/18/22 History ibuprofen 600 mg tablet 600 mg PO Q6H PRN Cramping #30 tabs 09/27/22 11/18/22 Rx Patient hx anesthesia problems: none Family hx anesthesia problems: none Results Review: All pre-operative results and documents have been reviewed as part of the pre-operative evaluation. [facility] Past Medical History Medical History Abnormal glucose tolerance in Anxiety Asthma Depression Encounter for IUD insertion 04/30/17 Mirena insertion Encounter for IUD removal 02/09/18 Mirena removal GERD (gastroesophageal reflux disease) Osteoarthritis Family History Family History Father Heart disease Hypertension Alcohol abuse Mother Hypertension Diabetes mellitus Cerebrovascular accident Grandparent Diabetes mellitus paternal grandfather maternal grandmother Social History Social History Years smoked: 13 Smoking status: Current every day smoker Tobacco type: cigarettes Alcohol intake: never Substance use: never Lack of Transportation: No Lack of Food: Never True Current Housing: I Have Housing Concerned About Future Housing: No Difficulty Paying Gas/Electric Bills: No Difficulty Paying for Meds: No Currently Unemployed: No Education: Associate Degree Difficulty w/ Childcare or Family Care: No Living arrangements: with family Additional living arrangements comments: Occupation/Education: occupation Additional occupation/education comments: RN Gender identity (if verbalized by the patient): Female Sexual Orientation (if Verbalized by the Patient): Straight or Heterosexual Spiritual care concerns: No Anes - Eval Final PreProcedure Day of Procedure 11/27/22 13:12 Patient weight: obese Heart: regular rate and rhythm Lungs: clear to auscultation Airway: Mallampati scale class II Neurological: alert and oriented Last oral intake: >/= 8 hours ASA classification: II Emergent: no Anesthetic plan: proceed Anesthesia type and monitoring: general ETT and standard monitoring Results Review: All pre-operative results and documents have been reviewed as part of the pre-operative evaluation. Informed Consent: The patient's anesthetic plan and its attendant risks and benefits were discussed with the patient/family/POA. Questions were solicited and answers provided to the satisfaction of the patient/family/POA.
[2022-11-28] VITALS (10 sets, daily range): BP systolic 105–130; BP diastolic 46–74; PULSE 72–84; RESP 14–18; TEMP 36.4; O2SAT 92–100
--- NOTE | 2022-11-28 08:59 | PM.IMHP ---
H&P: HPI History of Present Illness Date/Time: 11/28/22 08:59 27-year-old female 6 para [id number] presents for sterilization procedure. We have discussed nonpermanent measures and she strongly desires to proceed with permanent procedure. Chief Complaint: Undesired fertility Review of Systems Review of Systems: All systems reviewed & are unremarkable except as noted in HPI and below PMFSH Past Medical History Medical History Abnormal glucose tolerance in Anxiety Asthma Depression Encounter for IUD insertion 04/30/17 Mirena insertion Encounter for IUD removal 02/09/18 Mirena removal GERD (gastroesophageal reflux disease) Osteoarthritis Family History Family History Father Heart disease Hypertension Alcohol abuse Mother Hypertension Diabetes mellitus Cerebrovascular accident Grandparent Diabetes mellitus paternal grandfather maternal grandmother Social History Social History Years smoked: 13 Smoking status: Current every day smoker Tobacco type: cigarettes Alcohol intake: never Substance use: never Lack of Transportation: No Lack of Food: Never True Current Housing: I Have Housing Concerned About Future Housing: No Difficulty Paying Gas/Electric Bills: No Difficulty Paying for Meds: No Currently Unemployed: No Education: Associate Degree Difficulty w/ Childcare or Family Care: No Living arrangements: with family Additional living arrangements comments: Occupation/Education: occupation Additional occupation/education comments: RN Gender identity (if verbalized by the patient): Female Sexual Orientation (if Verbalized by the Patient): Straight or Heterosexual Spiritual care concerns: No Meds Home Medications and Allergies Home Medications Medication Instructions Recorded Confirmed Type albuterol sulfate 90 mcg/actuation 2 puff inhalation QID PRN Wheezing 09/21/22 11/18/22 History aerosol inhaler prenat.vits,jennifer,[id number] 1 tablet PO HS 09/21/22 11/18/22 History ibuprofen 600 mg tablet 600 mg PO Q6H PRN Cramping #30 tabs 09/27/22 11/18/22 Rx Allergies Allergy/AdvReac Type Severity Reaction Status Date / Time No Known Allergies Allergy Verified 11/18/22 14:16 Exam Const: General: cooperative, healthy appearing and comfortable Resp: Effort & Inspection: normal respiratory effort Auscultation: clear to auscultation bilaterally Cardio: Rate: regular rate Rhythm: regular rhythm GI: Inspection: normal to inspection Auscultation: normal bowel sounds : External Female Exam: normal external appearance Speculum Exam - Vagina: normal appearance of the vagina Speculum Exam - Cervix: normal appearance of the cervix Bimanual exam- vagina & uterus: normal bimanual exam Bimanual Exam- Adnexa, other: normal adnexae Assessment and Plan Assessment and plan (1) Encounter for female sterilization procedure: Code(s): Z30.2 - Encounter for sterilization Status: Acute Assessment and Plan: Proceed with laparoscopic bilateral salpingectomy
[2022-11-28 09:02] LABS: Hematocrit 41.2 % (37.0-47.0); Mean Corpuscular Hemoglobin 30.2 pg (26-34); Mean Platelet Volume 10.1 fl (7.4-10.4); Platelet Count Result 229 k/mm3 (150-375); Red Blood Count 4.63 M/mm3 (4.2-5.4); Red Cell Distribution Width 13.1 % (11.5-14.5); White Blood Count 8.4 K/mm3 (4.5-10.0)
--- NOTE | 2022-11-28 09:02 | WPDHPUPDATE1 ---
History and Physical Update Update Date/Time: 11/28/22 09:02 History and Physical has been reviewed, including an updated exam of the patient. There are NO changes in the patient's condition. Risks, benefits, and alternatives have been discussed and questions answered. Patient agrees to proceed with procedure.
[2022-11-28] MEDS: KETOROLAC 15 MG/ML VIAL (*BKC) IV PUSH (09:30)
[2022-11-28] MEDS: ACETAMINOPHEN 500 MG TABLET 1000 MG PO (09:30)
[2022-11-28] MEDS: LACTATED RINGERS 1,000 ML 30 ML IV CONT ×2 (09:31→11:15)
--- NOTE | 2022-11-28 10:39 | W.PM.PROC2 ---
Procedure Note - Detailed Date of Procedure 11/28/22 Pre-op Diagnosis Undesired fertility Post-op Diagnosis Same Procedure Performed Bilateral laparoscopic salpingectomies Surgeon Artemio Mcneil MD Anesthesia General Findings Uterus and tubes and ovaries without abnormality Description of Procedure Patient prepped and draped in usual manner for this procedure. Cervical instruments were placed for mobility throughout the case. Abdominal trocar sites were marked and placed under direct visualization. Using the LigaSure bilaterally the mesial salpinx was cauterized and cut and tubes were removed without difficulty. Tubal segments were removed. There was no bleeding no other evidence of abnormality in this point the gas was allowed to be removed and the incisions were approximated using 4-0 Monocryl. Patient was then to recovery room in stable condition. Estimated Blood Loss 10 Pathology Yes Complications No immediate complications Condition Stable Disposition PACU [facility] Billing Surgery - Charge Forward: Surgery Billing
[2022-11-28] MEDS: fentaNYL CITRATE INJ (*CRX) 100 MCG/2 ML VIAL 25 MCG IV PUSH ×3 (11:29→11:48)
[2022-11-28] MEDS: oxyCODONE HCL (*CRX) 5 MG TAB IR PO (12:14)
== END 2022-11-28 13:04 | disposition home or self-care (01) ==
PROVIDERS: Visit Provider Obstetrics & Gynecology
PROC: (CPT 49320; principal; 2022-11-28 10:00)
DX: Z30.2 Encounter for sterilization (principal); J45.909 Unspecified asthma, uncomplicated; Z79.51 Long term (current) use of inhaled steroids; F17.210 Nicotine dependence, cigarettes, uncomplicated; E66.9 Obesity, unspecified; Z68.36 Body mass index [BMI] 36.0-36.9, adult
CPT/HCPCS: 58661; 36415; 85027; 88302; A9270; J0330; J1100; J1170; J1885; J2250; J2405; J2704; J3010; J7030; J7120

== ENCOUNTER 2025-01-17 11:32 | Outpatient (CLI) | payer OTHER, SELFPAY ==
[2025-01-17 12:03] LABS: Hematocrit 43.5 % (37.0-47.0); Hemoglobin 14.2 g/dL (12.0-15.0); Mean Corpuscular HGB Conc 32.6 g/dl (32-36); Mean Corpuscular Hemoglobin 29.8 pg (26-34); Mean Corpuscular Volume 91.4 fl (80-100); Mean Platelet Volume 10.5 fl (7.4-10.4); Platelet Count Result 244 k/mm3 (150-375); Red Blood Count 4.76 M/mm3 (4.2-5.4); Red Cell Distribution Width 13.2 % (11.5-14.5); White Blood Count 10.1 K/mm3 (4.5-10.0)
== END 2025-01-17 11:33 | disposition home or self-care (01) ==
LOC: ANHSURGERY 11:36
PROVIDERS: PCP Physician Assistant; Visit Provider Obstetrics & Gynecology
DX: N92.6 Irregular menstruation, unspecified (principal)
CPT/HCPCS: 36415; 85027

== ENCOUNTER 2025-01-20 00:43 | Day surgery (SDC) | payer OTHER, SELFPAY ==
--- NOTE | 2025-01-11 15:41 | SUR.PREOP ---
Report to the Outpatient Waiting Room, entrance under the green pavilion located off [facility], at time ___08____ on date ___01/20/25____. Planned Procedure Time: ____1014____.? Time changes happen often and if your time is changed the preop area will call you the afternoon before. - You and your visitor will be asked to self-screen and do not enter if you have any COVID symptoms. Please call surgeon if you need to reschedule. - A mask is optional within the hospital at this time. Patients may have clear liquids (water, carbonated beverages, clear teas, apple juice) until 3 hours prior to surgery with a maximum of 20 ounces. - NO CLEAR LIQUIDS AFTER 0715 - No food from midnight until time of surgery and no smoking, or chewing tobacco (or any form of nicotine). No chewing gum, candy or mints. - Infants may have breast milk until 4 hours before surgery, infant formula 6 hours prior to surgery. - Children will be allowed to drink immediately following surgery.? If applicable, please bring a bottle or sippy cup to assist with drinking. Juice, water, soda, and popsicles are readily available.? For infants on formula, please bring formula the day of surgery.? Pacifiers are allowed. Take only the following medications with a SIP of water on the morning of surgery: N/A BRING ALBUTEROL INHALER WITH YOU THE DAY OF YOUR SURGERY DO NOT STOP ANY OF YOUR OTHER PRESCRIPTION MEDICATIONS PRIOR TO SURGERY EXCEPT THE FOLLOWING Hold all vitamins and supplements for 3 days per anesthesiologist. Medications to discontinue per physician IBUPROFEN (PER DR COOLEY) Date to take last dose 01/16/25 Please no make-up, nail sinhala, hairspray, perfume, deodorant, or body powder the day of surgery.? No jewelry (including any body piercings) or valuables the day of surgery, leave them at home.? Please take a shower or bath the night before, or the morning of, surgery with an antibacterial soap.? Wear comfortable, loose fitting clothing.? Children are encouraged to wear pajamas. - Jewelry must be removed prior to entering the operating room.? Rings and piercings that are not removed may be cut off. - The hospital will not accept responsibility for valuables.? - Please leave all valuables, including medications, at home the day of surgery. If you are going home after surgery, a licensed front load trash truck driver must drive you home.? - NO public transportation without another adult if you receive anesthesia. - We recommend that an adult stay with you for 24 hours following discharge. - We also recommend that you do not drive, make important decision, drink alcoholic beverages, or take any drugs that were not prescribed by your health care provider for at least 24 hours after your discharge time. For Pediatric surgeries, we recommend two adults accompany the child home. Follow any additional instructions given to you from your surgeon. Telephone instructions given to TAJ KENNEDY and asked if any additional questions and then verbalized understanding. Patient advised to call surgeon office or pre surgery nurse liaison [phone] if any additional questions.
[2025-01-11 15:56] VITALS: BMI 34.0
--- NOTE | 2025-01-19 15:50 | WPDHPUPDATE1 ---
History and Physical Update Update Date/Time: 01/19/25 15:50 29-year-old female presents for endometrial ablation. After her last office visit and exam underwent ultrasound which showed no abnormalities. Therefore you proceed as scheduled. Assessment: 1. menometrorrhagia Plan: 1. Hysteroscopy with uterine curettings 2. Endometrial ablation History and Physical has been reviewed, including an updated exam of the patient. There are NO changes in the patient's condition. Risks, benefits, and alternatives have been discussed and questions answered. Patient agrees to proceed with procedure.
--- OUTSIDE RECORDS SUMMARY | 2025-01-20 00:51 | XMS_ITS | Data Portability ---
Author Organization [place] [facility] [employer], Main Office Address [address] [place] [address] Assessment Encounter Date Assessment Date Assessment LastModified by Organization Details LastModified Time 01/31/2023 01/31/2023 [facility] Call office if worse, ER if life-threatening illness RTC in 3 months She voices understanding of plan and agrees [email or web address] Not available 01/31/2023 15:27:58 03/25/2023 03/25/2023 [facility] Call office if worse, ER if life-threatening illness RTC in 1 month She voices understanding of plan and agrees [email or web address] Not available 03/25/2023 11:21:40 04/15/2023 04/15/[address] [facility] 01/31/23 Call office if worse, ER if life-threatening illness RTC in 3 months She voices understanding of plan and agrees Not available 04/15/2023 11:15:15 07/17/2023 07/17/[address] [facility] 01/31/23 Call office if worse, ER if life-threatening illness RTC in 3 months- she plans transfer to [facility] She voices understanding of plan and agrees [email or web address] Not available 07/17/2023 12:37:21 Plan of Treatment Reminders Order Date Submit Date Provider Last Modified By Organization Details Last Modified Time Details Appointments None recorded. Lab vitamin D, 25-hydroxy, total, serum 2022 023 [facility] (Lab), [address] [place], [address], 07/07/202 3 10:08:03 HbA1c (hemoglobin A1c), blood [address] (Lab), [address] [place], [address], 3 10:08:03 CMP, serum or plasma 2022 023 [facility] (Lab), [address] [place], [address], 3 16:22:42 CBC w/ auto diff 2022 023 [facility] (Lab), [address] [place], [address], 3 15:41:45 lipid panel, serum 2022 023 [facility] (Lab), [address] [place], [address], 3 16:22:52 TSH + free T4, serum [address] (Lab), [address] [place], [address], 3 10:08:03 Referral urologist referral 2022 023 [email or web address] [place], [address] [place] [address], [address], 3 17:11:02 pain management referral - needs to transfer care from [facility] due to insurance- had been getting ESIs 2022 023 [email or web address] [facility], [address] [facility], [place], [address], 4 17:21:54 Procedures None recorded. Surgeries None recorded. Imaging None recorded. Medication Orders sertraline 50 mg tablet 2022 023 [facility] #[id number], [address] [place], [place], [id number], 3 11:31:38 sertraline 50 mg tablet 2022 023 [facility] #08526, [address] [place], [place], [id number], 3 11:04:54 ciprofloxac in 500 mg tablet [address] [facility] [employer] #93550, [address] [place], [place], [id number], 3 11:03:33 Advair Diskus 250 mcg-50 mcg/dose powder for inhalation 2022 023 [facility] #09805, [address] [place], [place], [id number], 3 11:06:15 sertraline 50 mg tablet 2022 023 [facility] [facility] #28559, [address] [place], [place], [id number], 3 11:06:16 hydroxyzine pamoate 25 mg capsule 2022 023 [facility] #24604, [address] [place], [place], [id number], 3 11:06:18 Symbicort 80 mcg-4.5 mcg/actuati on HFA aerosol inhaler [address] [facility] #17016, [address] [place], [place], [id number], 3 10:40:50 Patient TargetsNo targets recorded. Patient Instructions Encounter Date Encounter Id Patient Instructions Last Modified By Organization Details Last Modified Time 01/31/2023 [id number] INFLUENZA VACCIN E Your next one in the fall of 2022 TD/TDAP Patient will get at local pharmacy/health department MAMMOGRAM No screening indicated at this time/ no family history CERVICAL SCREENING/PELVIC EXAMINATION No screening necessary patient is up to date COLORECTAL SCREENING No screening necessary until age 45 DEPRESSION SCREENING History of depression BMI Obesity try to lose 5% of your body weight NUTRITION Continue healthy eating & exercise PHYSICAL ACTIVITY Need more activity Recommendation of 30 minutes of daily activity VISION Recommended today ALCOHOL USE No alcohol use TOBACCO USE current tobacco use Patient is not interested in smoking cessation at this time- Handout given SEXUALLY ACTIVE Yes, Patient is in monogamous relationship GLUCOSE SCREENING Ordered LIPID SCREENING Ordered [email or web address] Not available 01/31/2023 15:31:37 Reason for Referral Pain Management Referral for Chronic low back pain needs to transfer care from [facility] due to insurance- had been getting ESIs Referring Physician: Ernestina Lopez, Internal Medicine, Encounter Date: 01/31/2023 Urologist Referral for [place] 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 CELLU MARLENY LIND ES ASSOC IATED WITH AURY GRAY ON ARE PRESE NT. Not Available [facility] [address] [facility], [place], [place], [address], 01/16/2021 13:10:15 01/13/20 21 01/16/2021 pap, LB + HR HPV specimen adequacy: commen t Satis facto ry for evalu ation . Endoc ervic al and/o r squam ous metap lasti c cells (endo cervi jennifer compo nent) are prese nt. Areas of parti ally obscu ring infla mmato ry exuda te are prese nt. Not Available [facility] [address] [place], [address], 01/16/2021 13:10:15 01/13/20 21 01/16/2021 pap, LB + HR HPV clinician provided ICD10: harris hernandez Z01.4 19 Not Available [facility] [address] [place], [address], 01/16/2021 13:10:15 01/13/20 21 01/16/2021 pap, LB + HR HPV performed by: harris last, Page hernandez (ASCP ) Not Available [facility] [address] [place], [address], 01/16/2021 13:10:15 01/13/20 21 01/16/2021 pap, LB + HR HPV . . Not Available [facility] [address] [place], [address], 01/16/2021 13:10:15 01/13/20 21 01/16/2021 pap, LB + HR HPV note: harris hernandez The Pap smear is a scree roxy test desig homar to aid in the detec tion of magda ligna nt and malig nant condi tions of the uteri ne cervi x. It is not a diagn ostic proce dure and shoul d not be used as the sole means of detec ting cervi jennifer cance r. Both false -posi tive and false -nega tive repor ts do occur . Not Available [facility] [address] [place], [address], 01/16/2021 13:10:15 01/13/20 21 01/16/2021 pap, LB + HR HPV test methodology: commen t This liqui d based ThinP rep(R ) pap test was freda graf with the use of an image guide jenifer tamez Not Available [facility] [address] [place], [address], 01/16/2021 13:10:15 01/13/20 21 01/16/2021 pap, LB + HR HPV . commen t The HPV DNA refle x crite rodolfo were not met with this speci men resul t there fore, no HPV testi ng was perfo rmed. Not Available [facility] [address] [place], [address], 01/16/2021 13:10:15 02/01/20 23 01/31/2023 CBC/C OMPLE TE BLD COUNT W/DIF F white blood cells 8.0 x10'3 /uL 4.2-10 .8 Not Available [facility] (Lab) [address] [place], [address], 01/31/2023 15:41:45 02/01/20 23 01/31/2023 CBC/C OMPLE TE BLD COUNT W/DIF F red blood cells 5.03 x10'6 /uL 3.80-5 .20 Not Available [facility] (Lab) [address] [place], [address], 01/31/2023 15:41:45 02/01/20 23 01/31/2023 CBC/C OMPLE TE BLD COUNT W/DIF F hemoglobin 14.9 g/dL 12.0-1 5.6 Not Available [facility] (Lab) [address] [place], [address], 01/31/2023 15:41:45 02/01/20 23 01/31/2023 CBC/C OMPLE TE BLD COUNT W/DIF F hematocrit 43.9 % 35.7-4 5.7 Not Available [facility] (Lab) [address] [place], [address], 01/31/2023 15:41:45 02/01/20 23 01/31/2023 CBC/C OMPLE TE BLD COUNT W/DIF F mean red cell volume 87.3 fL 82.0-9 9.0 Not Available [facility] (Lab) [address] [place], [address], 01/31/2023 15:41:45 02/01/20 23 01/31/2023 CBC/C OMPLE TE BLD COUNT W/DIF F mean red cell hemoglobin 29.6 pg 27.0-3 3.0 Not Available [facility] (Lab) [address] [place], [address], 01/31/2023 15:41:45 02/01/20 23 01/31/2023 CBC/C OMPLE TE BLD COUNT W/DIF F mean RBC HGB concentratio n 33.9 g/dL 31.0-3 6.0 Not Available [facility] (Lab) [address] [place], [address], 01/31/2023 15:41:45 02/01/20 23 01/31/2023 CBC/C OMPLE TE BLD COUNT W/DIF F red cell distribution width 13.2 % 11.8-1 5.5 Not Available [facility] (Lab) [address] [place], [address], 01/31/2023 15:41:45 02/01/20 23 01/31/2023 CBC/C OMPLE TE BLD COUNT W/DIF F platelets 225 x10'3 /uL 150-40 0 Not Available [facility] (Lab) [address] [place], [address], 01/31/2023 15:41:45 02/01/20 23 01/31/2023 CBC/C OMPLE TE BLD COUNT W/DIF F mean platelet volume 9.8 fL 9.0-12 .4 Not Available [facility] (Lab) [address] [place], [address], 01/31/2023 15:41:45 02/01/20 23 01/31/2023 CBC/C OMPLE TE BLD COUNT W/DIF F neutrophils 55.0 % 39.0-7 2.0 Not Available [facility] (Lab) [address] [place], [address], 01/31/2023 15:41:45 02/01/20 23 01/31/2023 CBC/C OMPLE TE BLD COUNT W/DIF F lymphocytes 36.5 % 16.0-4 7.0 Not Available [facility] (Lab) [address] [place], [address], 01/31/2023 15:41:45 02/01/20 23 01/31/2023 CBC/C OMPLE TE BLD COUNT W/DIF F monocytes 4.9 % 5.0-12 .0 low Not Available [facility] (Lab) [address] [place], [address], 01/31/2023 15:41:45 02/01/20 23 01/31/2023 CBC/C OMPLE TE BLD COUNT W/DIF F eosinophils 2.5 % 1.0-7. 0 Not Available [facility] (Lab) [address] [place], [address], 01/31/2023 15:41:45 02/01/20 23 01/31/2023 CBC/C OMPLE TE BLD COUNT W/DIF F basophils 0.7 % 0.0-2. 0 Not Available [facility] (Lab) [address] [place], [address], 01/31/2023 15:41:45 02/01/20 23 01/31/2023 CBC/C OMPLE TE BLD COUNT W/DIF F immature granulocytes 0.4 % 0.00-0 .50 Not Available [facility] (Lab) [address] [place], [address], 01/31/2023 15:41:45 02/01/20 23 01/31/2023 CBC/C OMPLE TE BLD COUNT W/DIF F neutrophils, absolute count 4.41 x10'3 /uL 1.5-8. 0 Not Available [facility] (Lab) [address] [place], [address], 01/31/2023 15:41:45 02/01/20 23 01/31/2023 CBC/C OMPLE TE BLD COUNT W/DIF F lymphocytes, absolute count 2.93 x10'3 /uL 1.07-3 .43 Not Available [facility] (Lab) [address] [place], [address], 01/31/2023 15:41:45 02/01/20 23 01/31/2023 CBC/C OMPLE TE BLD COUNT W/DIF F monocytes, absolute count 0.39 x10'3 /uL 0.29-0 .99 Not Available [facility] (Lab) [address] [place], [address], 01/31/2023 15:41:45 02/01/20 23 01/31/2023 CBC/C OMPLE TE BLD COUNT W/DIF F eosinophils, absolute count 0.20 x10'3 /uL 0.02-0 .53 Not Available [facility] (Lab) [address] [place], [address], 01/31/2023 15:41:45 02/01/20 23 01/31/2023 CBC/C OMPLE TE BLD COUNT W/DIF F basophils, absolute count 0.06 x10'3 /uL 0.01-0 .08 Not Available [facility] (Lab) [address] [place], [address], 01/31/2023 15:41:45 02/01/20 23 01/31/2023 CBC/C OMPLE TE BLD COUNT W/DIF F immature granulocytes ,absolute 0.03 x10'3 /uL 0.00-0 .05 Not Available [facility] (Lab) [address] [place], [address], 01/31/2023 15:41:45 02/01/20 23 01/31/2023 CBC/C OMPLE TE BLD COUNT W/DIF F nucleated red blood cells 0.0 % -0 Not Available [facility] (Lab) [address] [place], [address], 01/31/2023 15:41:45 02/01/20 23 01/31/2023 CBC/C OMPLE TE BLD COUNT W/DIF F NRBC# 0.00 x10'3 /uL Not Available [facility] (Lab) [address] [place], [address], 01/31/2023 15:41:45 02/01/20 23 01/31/2023 COMP MET PANEL /LIVE R sodium 142 mmol/ L 137-14 5 Not Available [facility] (Lab) [address] [place], [address], 01/31/2023 16:22:42 02/01/20 23 01/31/2023 COMP MET PANEL /LIVE R potassium 4.4 mmol/ L 3.5-5. 1 Not Available [facility] (Lab) [address] [place], [address], 01/31/2023 16:22:42 02/01/20 23 01/31/2023 COMP MET PANEL /LIVE R chloride 105 mmol/ L 98-107 Not Available [facility] (Lab) [address] [place], [address], 01/31/2023 16:22:42 02/01/20 23 01/31/2023 COMP MET PANEL /LIVE R carbon dioxide 23 mmol/ L 22-30 Not Available [facility] (Lab) [address] [place], [address], 01/31/2023 16:22:42 02/01/20 23 01/31/2023 COMP MET PANEL /LIVE R anion gap 18.4 mmol/ L 14-22 Not Available [facility] (Lab) [address] [place], [address], 01/31/2023 16:22:42 02/01/20 23 01/31/2023 COMP MET PANEL /LIVE R glucose 98 mg/dL 70-99 Not Available [facility] (Lab) [address] [place], [address], 01/31/2023 16:22:42 02/01/20 23 01/31/2023 COMP MET PANEL /LIVE R BUN 15 mg/dL 8-19 Not Available [facility] (Lab) [address] [place], [address], 01/31/2023 16:22:42 02/01/20 23 01/31/2023 COMP MET PANEL /LIVE R creatinine 0.73 mg/dL 0.66-1 .25 Not Available [facility] (Lab) [address] [place], [address], 01/31/2023 16:22:42 02/01/20 23 01/31/2023 COMP MET PANEL /LIVE R GFR >60 Refer ence Range : [place] ge GFR Healt hy Adult : >60 mL/mi n/1.7 3 m2 Chron ic Kidne y Disea se: 15-60 mL/mi n/1.7 3 m2 Kidne y Failu re: <15/m L/min /1.73 m2 www.n iddk. nih.g ov The MDRD study equat ion has not been valid ated in child pawan <18 years of age; pregn ant women ; the elder ly >85 years of age; or in some racia l or ethni c subgr oups, such as Hispa nics. Outsi de the valid ated jhoan eters , estim ated GFR is less accur ate, requi ring clini jennifer judgm ent on a case- by-ca se basis . Clini jennifer inter preta tion for other races and ages must be made by the clini salvatore. The MDRD study equat ion has not been valid ated for the evalu ation of serum creat inine relat ed to nutri sonali l statu s or medic ation usage . For perso ns <18 years of age, a pedia tric GFR calcu lator is avail able on the [facility] websi te: https ://august w.valeriy pagany.o rg/pr ofess ional s/kdo qi/gf r_cal culat or Not Available [facility] (Lab) [address] [place], [address], 01/31/2023 16:22:42 02/01/20 23 01/31/2023 COMP MET PANEL /LIVE R alkaline phosphatase 57 U/L 38-126 Not Available [facility] (Lab) [address] [place], [address], 01/31/2023 16:22:42 02/01/20 23 01/31/2023 COMP MET PANEL /LIVE R alanine aminotransfe rase 52 U/L 0-35 high Not Available [facility] (Lab) [address] [place], [address], 01/31/2023 16:22:42 02/01/20 23 01/31/2023 COMP MET PANEL /LIVE R aspartate aminotransfe rase 35 U/L 15-37 Not Available [facility] (Lab) [address] [place], [address], 01/31/2023 16:22:42 02/01/20 23 01/31/2023 COMP MET PANEL /LIVE R bilirubin, total 0.20 mg/dL 0.20-1 .30 Not Available [facility] (Lab) [address] [place], [address], 01/31/2023 16:22:42 02/01/20 23 01/31/2023 COMP MET PANEL /LIVE R bilirubin, conjugated (direct) 0.00 mg/dL 0.00-0 .30 Not Available [facility] (Lab) [address] [place], [address], 01/31/2023 16:22:42 02/01/20 23 01/31/2023 COMP MET PANEL /LIVE R biliurubin,u ncong. (indirect) 0.10 mg/dL 0.00-1 .1 Not Available [facility] (Lab) [address] [place], [address], 01/31/2023 16:22:42 02/01/20 23 01/31/2023 COMP MET PANEL /LIVE R calcium 9.6 mg/dL 8.4-10 .2 Not Available [facility] (Lab) [address] [place], [address], 01/31/2023 16:22:42 02/01/20 23 01/31/2023 COMP MET PANEL /LIVE R total protein 7.6 g/dL 6.3-8. 2 Not Available [facility] (Lab) [address] [place], [address], 01/31/2023 16:22:42 02/01/20 23 01/31/2023 COMP MET PANEL /LIVE R albumin 4.6 g/dL 3.4-5. 0 Not Available [facility] (Lab) [address] [place], [address], 01/31/2023 16:22:42 02/01/20 23 01/31/2023 COMP MET PANEL /LIVE R globulin 3.0 g/dL 2.6-4. 2 Not Available [facility] (Lab) [address] [place], [address], 01/31/2023 16:22:42 02/01/20 23 01/31/2023 COMP MET PANEL /LIVE R A/G ratio 1.5 ratio 1.0-2. 0 Not Available [facility] (Lab) [address] [place], [address], 01/31/2023 16:22:42 02/01/20 23 01/31/2023 LIPID PANEL cholesterol 255 mg/dL 140-19 9 high NIH JADYN NSUS RECOM MENDA TION FOR ORIN STERO L: ADULT CHILD LOW RISK: <200 <170 BORDE RLINE : <200- 239 ----- HIGH RISK: >240 >200 Not Available [facility] (Lab) [address] [place], [address], 01/31/2023 16:22:52 02/01/20 23 01/31/2023 LIPID PANEL triglyceride s 237 mg/dL 0-150 high NIH JADYN NSUS REPOR T RECOM MENDA TION FOR TRIGL YCERI SANDRA: ADULT CHILD LOW RISK: <150 ----- BODER LINE: 150-1 99 ----- HIGH RISK: >200 ----- Not Available [facility] (Lab) [address] [place], [address], 01/31/2023 16:22:52 02/01/20 23 01/31/2023 LIPID PANEL HDL cholesterol 53 mg/dL 40- Not Available [facility] (Lab) [address] [place], [address], 01/31/2023 16:22:52 02/01/20 23 01/31/2023 LIPID PANEL LDL cholesterol, calculated 155 mg/dL 0-130 high NIH JADYN NSUS REPOR T RECOM MENDA TIONS FOR LDL: ADULT CHILD LOW RISK <130 <110 (OPTI MAL LDL) <100 ----- BORDE RLINE : 130-1 59 ----- HIGH RISK: >160 >130 A TRIGL YCERI DE RESUL T >400 INVAL IDATE S THE CALCU LATIO N FOR LDL FRACT IONAT ION - THE LDL RESUL T WILL NOT BE REPOR CATHY. Not Available [facility] (Lab) [address] [place], [address], 01/31/2023 16:22:52 02/01/20 23 01/31/2023 VITAM IN D 25-HY DROXY [id number] 39.1 NG/mL 30-100 Vitam in D Statu s: Defic ient: <20 ng/mL Insuf ficie nt: 20-29 ng/mL Suffi cient : 30-10 0 ng/mL Not Available [facility] (Lab) [address] [place], [address], 01/31/2023 16:40:03 02/01/20 23 01/31/2023 T4 FREE free T4 0.82 NG/dL 0.78-2 .19 Not Available [facility] (Lab) [address] [place], [address], 01/31/2023 16:40:25 02/01/20 23 01/31/2023 TSH thyroid-stim ulating hormone 3.110 uIU/m L 0.465- 4.680 Not Available [facility] (Lab) [address] [place], [address], 01/31/2023 16:55:58 02/01/20 23 01/31/2023 HEMOG LOBIN A1C HA1C 5.2 % 4.0-6. 0 Diabe carlyn Scree roxy Crite rodolfo: <5.7% Consi stent with absen ce of diabe carlyn 5.7-6 .4% Consi stent with incre ased risk for diabe carlyn (pred iabet es) >OR=6 .5% Consi stent with diabe carlyn REFER ENCE: Diabe carlyn Care 2015, 39([place] ppl.1 ):s13 -s22 Not Available [facility] (Lab) [address] [place], [address], 01/31/2023 20:00:48 08/01/20 21 08/01/2021 US, pelvi s, trans abdom inal + trans vagin al [facility] [address] [place] [address] [place], [place] [address]evelyn Name: BLANCA NEVAREZ Access ion #: [id number] Sex: F : 1995 2 Locati on: RAD Attend ing Physic erika: HURFOR D, SARBJIT Orderi ng Physic erika: HURFOR D, SARBJIT Exam Date: 2020 5:03 PM Exam Name: US PELVIS NON OB TRANSV AGINAL Admitt ing Diagno sis(es ): RADIOL OGY REPORT - FINAL EXAM: US PELVIS NON OB TRANSV AGINAL HISTOR Y: irregu lar menstr uation COMPAR GINNY: None availa ble. TECHNI QUE: Transv aginal and transa bdomin al pelvic ultras ound was perfor med. FINDIN GS: The anteve rted uterus measur es 9.0 x 4.7 x 5.5 cm. The endome trium measur es 8.6 mm in thickn ess. The right ovary measur es 3.7 x 2.5 x 1.9 cm. The left ovary measur es 3.5 x 2.0 x 2.1 cm. Both ovarie s are normal in appear ance and demons trate normal color Dopple r blood flow with the except ion of a simple right ovaria n cyst measur ing 1.1 cm. Trace physio logic fluid is identi fied in the pelvis . Page 1 of 2 [facility] Name: BLANCA NEVAREZ Access ion #: [id number] Sex: F : 1995 2 Exam Date: 2020 5:03 PM Exam Name: US PELVIS NON OB TRANSV AGINAL Admitt ing Diagno sis(es ): IMPRES KALEN: Grossl y normal sonogr aphic appear ance of the uterus and ovarie s. Create d and electr onical ly signed by: Marcello Parada ch, DO Signed Date: 2020 5:50 PM (CT) Dictat ed by: Marcello Parada ch, DO DD: 2020 5:50 PM (CT) DT: 12/29/ 2021 5:50 PM (CT) Page 2 of 2 [id number] [facility] (Imaging) [address] [place], [address], 10/02/2022 16:41:33 08/01/20 21 08/01/2021 US, pelvi s, trans abdom inal + trans vagin al No observ ation record ed. [id number] [facility] [address] [place], [address], 10/02/2022 16:41:33 04/15/20 23 04/12/2023 CT, abdom en + pelvi s, w/o contr ast No observ ation record ed. [email or web address] Not Available 2022 12:48:13 Result Notes None recorded. Problems Name Problem SNOMED Code Status Onset Date Resolution Date Notes Provider Name and Address Organization Details Recorded Time Abdominal pain 87046160 Completed Not Available [facility] 3 16:39:46 Obesity 741269251 Active Not Available [facility] 3 16:39:46 Morning sickness 45022955 Completed Not Available [facility] 3 16:39:46 Dyspareuni a 41217547 Completed Not Available [facility] 3 16:39:46 56010146 Completed 201802/08/2019 Not Available [facility] 3 16:39:46 Irregular periods 49180950 Completed Not Available [facility] 3 16:39:46 Asthma 095552823 Active 2022 [facility] [address] [facility] [address], [place], [address] , [employer] 3 14:54:36 Hyperlipid emia 58529453 Active 2022 [facility] [address] [facility], [facility] [address], [place], [address] , [employer] 3 14:54:38 Generalize d anxiety disorder 87531549 Active 2022 [facility] [address], [place], [address] , [place] [facility] 3 14:54:47 Depressive disorder 99739664 Active 2022 [facility] [address], [address], [place], [address] , [place] [facility] 3 14:54:52 Migraine 68982487 Active 2022 [facility] [address], [address], [place], [address] , Modular Patterns [place] [facility] 3 14:54:57 Mitral valve regurgitat ion 93150471 Active 2022 ELIZABETH [facility] [address], [address], [place], [address] , Modular Patterns [place] [facility] 3 14:55:03 Chronic low back pain 006035181 Active 2022 [facility] [address], [address], [place], [address] , [facility] 3 14:55:08 Nicotine dependence 84878968 Active 2022 [facility] [address], [address], [place], [address] , [place] [facility] 3 15:31:41 Hydronephr osis due to calculus of kidney and ureter 803887408 Active 2022 [facility] [address], [address], [place], [address] , Modular Patterns [place] [facility] 3 11:04:04 Viral syndrome 300658280 Active 2022 [facility]IZAB[facility] [address], [address], [place], [address] , [place] [facility] 3 11:26:26 Problem Notes None recorded. Procedures Surgical History Date Name Laterality Status Provider Name and Address Organization Details Recorded Time 3 Tubal Ligation completed CORNELIO [facility] Business Plan [facility] 01/31/2023 14:39:24 8 [facility] Procedure completed Not Available [facility] 2022 16:39:21 8 Date of Last Pap Smear completed Not Available [facility] 10/02/2022 16:39:20 7 [facility] Procedure completed Not Available [facility] 2022 16:39:21 Imaging Results None recorded. Procedure Notes None recorded. Medical Equipment None Reported. Allergies No known drug allergies Medications Name Sig Start Date Stop Date Status Note LastModified by Organization Details LastModified Time cyclobenzap rine 10 mg tablet TK 1 T PO HS active Not Available Not Available No t Available amoxicillin 500 mg capsule TAKE 1 CAPSULE BY MOUTH THREE TIMES DAILY UNTIL ALL TAKEN. 03/25 completed Not Available Not Available Not Available Mirena 21 mcg/24 hr (up to 8 years) 52 mg intrauterin e device Take 1 device by intrauter ine route. 02/09 completed Not Available Not Available Not Available promethazin e-DM 6.25 mg-15 mg/5 mL oral syrup TAKE 5 ML BY MOUTH EVERY 4 HOURS FOR 10 DAYS NEEDED 01/12 completed Not Available Not Available Not Available gabapentin 600 mg tablet TK 1 T PO QHS active Not Available Not Available No t Available Vitamin B-6 25 mg tablet TK 1 T PO QID 03/04 completed Not Available Not Available Not Available trazodone 50 mg tablet 02/09 completed Not Available Not Available Not Available azithromyci n 250 mg tablet TAKE 2 TABLETS (500 MG) BY ORAL ROUTE ONCE DAILY FOR 1 DAY THEN 1 TABLET (250 MG) BY ORAL ROUTE ONCE DAILY FOR 4 DAYS 01/12 completed Not Available Not Available Not Available ibuprofen 800 mg tablet TK 1 T PO TID WITH A MEAL 01/12 completed Not Available Not Available Not Available fluconazole 150 mg tablet TAKE 1 TABLET BY MOUTH 1 TIME 01/31 completed Not Available Not Available Not Available hydrocodone 5 mg-acetamin ophen 325 mg tablet TAKE 1 TABLET BY MOUTH EVERY 6 HOURS NEEDED FOR PAIN 12/14 /2023 completed Not Available Not Available Not Available phenazopyri dine 200 mg tablet TAKE 1 TABLET BY MOUTH EVERY 8 HOURS NEEDED active Not Available Not Available No t Available prednisone 20 mg tablet 04/28 completed Not Available Not Available Not Available clonazepam 0.5 mg tablet TAKE 1 TABLET BY MOUTH TWICE DAILY NEEDED FOR 30 DAYS 01/31 completed Not Available Not Available Not Available clonazepam 1 mg tablet TK 1 T PO QPM PRN active Not Available Not Available No t Available permethrin 5 % topical cream active Not Available Not Available Not Available sumatriptan 50 mg tablet 01/31 completed Not Available Not Available Not Available topiramate 25 mg tablet TAKE 1 TABLET BY MOUTH EVERY DAY FOR MIGRAINE HEADACHE 01/31 completed Not Available Not Available Not Available metronidazo le 500 mg tablet TAKE 1 TABLET BY MOUTH EVERY 12 HOURS 01/31 completed Not Available Not Available Not Available acetaminoph en 300 mg-codeine 30 mg tablet TAKE 1 TABLET BY MOUTH EVERY 6 HOURS NEEDED FOR PAIN. 03/25 completed Not Available Not Available Not Available ciprofloxac in 250 mg tablet TK 1 T PO BID UNTIL ALL TAKEN active Not Available Not Available No t Available ciprofloxac in 500 mg tablet TAKE 1 TABLET BY MOUTH EVERY 12 HOURS FOR 10 DAYS 07/17 completed Not Available Not Available Not Available sulfamethox azole 800 mg-trimetho prim 160 mg tablet TK 1 T PO Q 12 H active Not Available Not Available No t Available tramadol 50 mg tablet TK 1 T PO Q 8 H PRN FOR MODERATE PAIN 07/29 completed Not Available Not Available Not Available lamotrigine 25 mg tablet TK 1 T PO QD 02/09 completed Not Available Not Available Not Available meloxicam 7.5 mg tablet active Not Available Not Available Not Available Zofran 4 mg tablet Take 1- 2 TABLETs EVERY 8 HOURS by oral route as necessary for nausea active Not Available Not Available No t Available oxycodone-a cetaminophe n 5 mg-325 mg tablet TAKE 1 TABLET BY MOUTH EVERY 6 HOURS NEEDED FOR PAIN 01/31 completed Not Available Not Available Not Available amoxicillin 875 mg tablet TK 1 T PO BID FOR 10 DAYS active Not Available Not Available No t Available citalopram 20 mg tablet TK 1 T PO D 02/09 completed Not Available Not Available Not Available methocarbam ol 750 mg tablet TAKE 1 TABLET BY MOUTH THREE TIMES DAILY NEEDED 01/31 completed Not Available Not Available Not Available Depo-Pretzel Cooker a 150 mg/mL intramuscul ar suspension Inject 1 mL every 3 months by intramusc ular route. active Not Available Not Available No t Available DOK 100 mg capsule 01/31 completed Not Available Not Available Not Available tamsulosin 0.4 mg capsule TAKE 1 CAPSULE BY MOUTH DAILY 07/17 completed Not Available Not Available Not Available dicyclomine 20 mg tablet TK 1 T PO Q 8 H PRF STOMACH CRAMPS active Not Available Not Available No t Available meclizine 25 mg tablet TK 1 T PO TID PRN active Not Available Not Available No t Available baclofen 10 mg tablet TAKE 1 TABLET BY MOUTH THREE TIMES DAILY NEEDED 01/12 completed Not Available Not Available Not Available hydrocodone 7.5 mg-acetamin ophen 325 mg tablet TAKE 1 TABLET BY MOUTH TWICE DAILY NEEDED 01/31 completed Not Available Not Available Not Available cephalexin 500 mg capsule TAKE ONE CAPSULE BY MOUTH EVERY 8 HOURS 01/31 completed Not Available Not Available Not Available naproxen sodium 550 mg tablet TK 1 T PO BID PRN active Not Available Not Available No t Available oseltamivir 75 mg capsule 09/24 completed Not Available Not Available Not Available buspirone 10 mg tablet TK 1 T PO BID 02/09 completed Not Available Not Available Not Available promethazin e 25 mg tablet TK 1 T PO TID PRN 04/28 completed Not Available Not Available Not Available Advair Diskus 250 mcg-50 mcg/dose powder for inhalation USE 1 INHALATIO N BY MOUTH TWICE DAILY active Not Available Not Available No t Available omeprazole 20 mg capsule,del ayed release active Not Available Not Available Not Available Banophen 25 mg capsule TAKE 1 CAPSULE BY MOUTH EVERY 4 HOURS NEEDED FOR ITCHING 01/31 completed Not Available Not Available Not Available hydroxyzine HCl 25 mg tablet TK 1 TO 2 TS PO Q 4 TO 6 H PRN active Not Available Not Available No t Available norethindro ne acetate 1 mg-ethinyl estradiol 20 mcg tablet Take 1 tablet every day by oral route. 01/12 completed Not Available Not Available Not Available ergocalcife rol (vitamin D2) 1,250 mcg (50,000 unit) capsule TAKE 1 CAPSULE BY MOUTH EVERY WEEK WITH FOOD 01/31 completed Not Available Not Available Not Available ibuprofen 600 mg tablet TAKE 1 TABLET BY MOUTH EVERY 6 HOURS WITH FOOD NEEDED active Not Available Not Available No t Available levofloxaci n 500 mg tablet TK 1 T PO QD FOR 14 DAYS active Not Available Not Available No t Available methylpredn isolone 4 mg tablets in a dose pack FOLLOW PACKAGE DIRECTION S 03/25 completed Not Available Not Available Not Available albuterol sulfate HFA 90 mcg/actuati on aerosol inhaler INHALE 2 PUFFS BY MOUTH EVERY 8 HOURS NEEDED active Not Available Not Available No t Available ondansetron 4 mg disintegrat ing tablet DISSOLVE 1 TABLET ON THE TONGUE EVERY 6 HOURS NEEDED active Not Available Not Available No t Available cefdinir 300 mg capsule TAKE 1 CAPSULE BY MOUTH EVERY 12 HOURS FOR 7 DAYS 07/17 completed Not Available Not Available Not Available fluoxetine 20 mg capsule TK 1 C PO QAM active Not Available Not Available No t Available fluticasone propionate 50 mcg/actuati on nasal spray,suspe nsion USE 2 SPRAYS IN EACH NOSTRIL QD active Not Available Not Available No t Available sertraline 50 mg tablet take 1 tab PO daily active Not Available Not Available No t Available Unisom (doxylamine ) 25 mg tablet Take 12.5 mg 3 times a day by oral route. 03/04 completed Not Available Not Available Not Available lamotrigine 100 mg tablet TK 1 T PO D 09/24 completed Not Available Not Available Not Available naproxen 500 mg tablet TAKE 1 TABLET BY MOUTH TWICE DAILY WITH FOOD 01/31 completed Not Available Not Available Not Available metoclopram lali 10 mg tablet TAKE 1 TABLET BY MOUTH THREE TIMES DAILY BEFORE MEALS 01/31 completed Not Available Not Available Not Available amoxicillin 875 mg-potassiu m clavulanate 125 mg tablet TK 1 T PO BID FOR 10 DAYS active Not Available Not Available No t Available hydroxyzine pamoate 25 mg capsule TAKE 1 CAPSULE BY MOUTH EVERY 8 HOURS NEEDED FOR PANIC ATTACKS active Not Available Not Available No t Available Microgestin Fe 1.5/30 (28) 1.5 mg-30 mcg (21)/75 mg (7) tablet TK 1 T PO QD active Not Available Not Available No t Available Cough Syrup DM 10 mg-100 mg/5 mL 09/24 completed Not Available Not Available Not Available medroxyprog esterone 150 mg/mL intramuscul ar syringe INJECT 1 ML EVERY 3 MONTHS active Not Available Not Available No t Available cyclobenzap rine 5 mg tablet TK 1 T PO TID active Not Available Not Available No t Available rosuvastati n 10 mg tablet TAKE 1 TABLET BY MOUTH EVERY DAY 01/31 completed Not Available Not Available Not Available nitrofurant oin monohydrate /macrocryst als 100 mg capsule TAKE 1 CAPSULE BY MOUTH EVERY 12 HOURS FOR 7 DAYS 01/31 completed Not Available Not Available Not Available Reclipsen (28) 0.15 mg-0.03 mg tablet TK 1 T PO D UTD active Not Available Not Available No t Available albuterol sulfate 02/09 completed prn Not Available Not Available Not Available drospirenon e 3 mg-ethinyl estradiol 0.02 mg tablet TAKE 1 TABLET BY MOUTH EVERY DAY 01/31 completed Not Available Not Available Not Available Fish Oil 340 mg-1,000 mg capsule TAKE 1 CAPSULE BY MOUTH TWICE DAILY WITH FOOD 01/31 completed Not Available Not Available Not Available calcium 600 mg (as carbonate)- vitamin D3 10 mcg (400 unit) tablet TK 1 T PO BID 01/12 completed Not Available Not Available Not Available Symbicort 80 mcg-4.5 mcg/actuati on HFA aerosol inhaler Inhale 2 puffs twice a day by inhalatio n route. 03/25 completed Not Available Not Available Not Available cholecalcif tasneem (vitamin D3) 50 mcg (2,000 unit) capsule TAKE 1 CAPSULE BY MOUTH EVERY DAY WITH A MEAL 01/12 completed Not Available Not Available Not Available Azurette (28) 0.15 mg-0.02 mg (21)/0.01 mg (5) tablet Take 1 tablet every day by oral route for 28 days. active Not Available Not Available No t Available Vol-Tab Rx 29 mg iron-1 mg tablet Take 1 tablet every day by oral route for 90 days. active Not Available Not Available No t Available Salma 3 mg-0.03 mg tablet Take 1 tablet every day by oral route for 28 days. 06/11 /2021 completed Not Available Not Available Not Available 28 mg iron-800 mcg tablet Take 1 tablet every day by oral route. 04/28 completed Not Available Not Available Not Available Estarylla 0.25 mg-0.035 mg tablet TAKE 1 TABLET BY MOUTH EVERY DAY 01/31 completed Not Available Not Available Not Available Pennsaid 20 mg/gram/act uation (2 %) topical soln in metered-dos e pump 01/12 completed Not Available Not Available Not Available PrePlus 27 mg iron-1 mg tablet TK 1 T PO QD 04/28 completed Not Available Not Available Not Available PNV 29-1 29 mg iron-1 mg tablet TK 1 T PO QD 09/24 completed Not Available Not Available Not Available Ashlyna 0.15 mg-30 mcg (84)/10 mcg(7) tablets,3 month dose pack TK 1 T PO QD 07/29 completed Not Available Not Available Not Available Vitals Date Recorded Body mass index (BMI) Body height Body temperature Body weight Systolic blood pressure Diastolic blood pressure Provider Name and Address Organization Details Last Updated DateTime 1 37.1 kg/m2 167.64 cm 98 [degF] 206010. 25 g 120 mm[Hg] 78 mm[Hg] Not Available [employer] 3 16:39:31 Date Recorded Body weight Body mass index (BMI) Body height Body temperature Heart rate Oxygen saturation Oxygen saturation in Arterial blood by Pulse oximetry Systolic blood pressure Diastolic blood pressure Provider Name and Address Organization Details Last Updated DateTime 3 071403. 51 g 35.8 kg/m2 167.64 cm 98.7 [degF] 94 /min 98 % 98 % 126 mm[Hg] 78 mm[Hg] Xuan Alba MA [employer] 3 14:41:55 Date Recorded Body height Body mass index (BMI) Body weight Body temperature Heart rate Oxygen saturation Oxygen saturation in Arterial blood by Pulse oximetry Systolic blood pressure Diastolic blood pressure Provider Name and Address Organization Details Last Updated DateTime 3 167.64 cm 34.9 kg/m2 18174.9 5 g 98.2 [degF] 86 /min 97 % 97 % 122 mm[Hg] 74 mm[Hg] Xuan Alba MA [employer] 3 10:42:43 Date Recorded Body height Body mass index (BMI) Body weight Body temperature Heart rate Oxygen saturation Oxygen saturation in Arterial blood by Pulse oximetry Systolic blood pressure Diastolic blood pressure Provider Name and Address Organization Details Last Updated DateTime 3 167.64 cm 34.5 kg/m2 09474.7 7 g 99 [degF] 100 /min 97 % 97 % 124 mm[Hg] 76 mm[Hg] Xuan Alba MA [facility] [employer] [facility] 3 10:54:30 Date Recorded Body height Body mass index (BMI) Body weight Body temperature Heart rate Oxygen saturation Oxygen saturation in Arterial blood by Pulse oximetry Systolic blood pressure Diastolic blood pressure Provider Name and Address Organization Details Last Updated DateTime 3 167.64 cm 35 kg/m2 53446.5 4 g 98.9 [degF] 88 /min 97 % 97 % 128 mm[Hg] 74 mm[Hg] Xuan Alba MA [facility] [employer] [facility] 3 11:06:03 Social History Question Answer Notes LastModified by Organization Details LastModified Time Tobacco Smoking Status Current Some Day Smoker ocassional smoker Xuan Alba MA [facility] 01/31/2023 14:37:15 What Is Your Level Of Caffeine Consumption? Heavy [id number] Information not available 10/02/2022 In The 14 Days Before Symptom Onset, Have You Had Close Contact With A Laboratory-conf irmed COVID-19 While That Case Was Ill? No [id number] Information not available 10/02/2022 In The 14 Days Before Symptom Onset, Have You Had Close Contact With A Person Who Is Under Investigation For COVID-19 While That Person Was Ill? No [id number] Information not available 10/02/2022 What Type Of Diet Are You Following? REGULAR Information not available 01/31/2023 What Is The Highest Grade Or Level Of School You Have Completed Or The Highest Degree You Have Received? [id number] Information not available 01/31/2023 Have There Been Any Changes To Your Family Or Social Situation? No Information not available 01/31/2023 What Is The Fluoride Status Of Your Home? Unknown Information not available 01/31/2023 Are There Any Guns Present In Your Home? Yes Information not available 01/31/2023 Do You Use Insect Repellent Routinely? Yes Information not available 01/31/2023 Where Do You Live? SingleLevelHouse Information not available 01/31/2023 What Was The Date Of Your Most Recent Tobacco Screening? 07/17/2023 Information not available 07/17/2023 Do You Have Any Pets? Yes Information not available 01/31/2023 What Is Your Relationship Status? Information not available 01/31/2023 Do You Have Smoke And Carbon Monoxide Detectors In Your Home? Yes Information not available 01/31/2023 Are You Passively Exposed To Smoke? Yes Information not available 01/31/2023 Are There Any Smokers In Your House? No Information not available 01/31/2023 How Much Tobacco Do You Smoke? 0.5 PPD [id number] Information not available 10/02/2022 Do You Use Sunscreen Routinely? Yes Information not available 01/31/2023 Have You Recently Traveled Abroad? No Information not available 01/31/2023 Do You Have Any Dietary Restrictions? No Information not available 01/31/2023 Sex: Unknown Functional Status Question Answer Note LastModified by Organizat ion Details LastModified Time Do you use any illicit or recreational drugs? No Information not available 01/31/2023 Do you or have you ever used any other forms of tobacco or nicotine? No Information not available 01/31/2023 What is your level of alcohol consumption? None Information not available 01/31/2023 Are you currently employed? 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 Never used electronic cigarettes [id number] Information not available 10/02/2022 What is your exercise level? Moderate Information not available 01/31/2023 Mental Status None recorded. Family History Relationship Description Onset Age of this Age Resolved Age Notes LastModified by Organization Details LastModified Time Father Heart disease [id number] Not available 10/02/2022 16:39:21 Father Hypertensive disorder [id number] Not available 10/02/2022 16:39:21 Father Harmful pattern of use of alcohol [id number] Not available 10/02/2022 16:39:21 Mother Hypertensive disorder [id number] Not available 10/02/2022 16:39:21 Mother Diabetes mellitus [id number] Not available 10/02/2022 16:39:21 Mother Cerebrovascu lar accident [id number] Not available 10/02/2022 16:39:21 Paternal Grandfather Diabetes mellitus [id number] Not available 10/02/2022 16:39:21 Maternal Grandmother Diabetes mellitus [id number] Not available 10/02/2022 16:39:21 Medical History Condition Response HEADACHES/MIGRAINES Y ANXIETY DISORDER Y ASTHMA Y HEART DISEASE/HEART PROBLEMS Y OTHER # 1 Y DEPRESSION (INCLUDING POST ) Y MIGRAINES Y HIGH CHOLESTEROL / HYPERLIPIDEMIA Y Gynecological History Statement/Question Response Abnormal Pap N Date of Last Pap Smear 09/24/2017 Current Control Method Depo-Pretzel Cooker a Age at Menarche 13 Date of LMP Breast Problems no Obstetrics History GPAL:G 4 P 3 0 1 3 Type Value Full Term 3 Induced 1 Living 3 Total 4 Past Encounters Encounter ID Performer Location Encounter Start Date Encounter Closed Date Diagnosis/Indication Diagnosis SNOMED-CT Code Diagnosis ICD10 Code Diagnosis Note [id number] [facility]_M IGRATION_ DEFAULT_1 _1 , 01/12/2021 00:00:00 01/12/2021 11:14:16 [id number] Gogo gerard MD [facility] [place] [facility] [address] [facility], [facility] [address] [place] [address] 01/31/2023 14:28:21 01/31/2023 15:01:45 Asthma 699997989 J45.909 On albuterol p.r.n. Restart Symbicort- she is aware to rinse and spit after use Hyperlipidemia 52105396 E78.5 Not currently on any meds-has been on Crestor in the past Check labs Generalize d anxiety disorder 77579484 F41.1 Does not feel she needs any meds at this time Declines any referrals to psychiatry or counseling Call office if any change in mood or behavior Depressive disorder 3548 9007 F32.A As above Migraine 92068635 G43.90 9 Has both sumatripta n and topiramate at home-she is using these p.r.n.Migr aines have not been bothering her much lately Mitral magi ve regurgitation [id number] I34.0 Follows cardiology -Dr. Mcnair nly has to follow up prn if symptomati c now Chronic low back pain 27 6587973 M54.50 Pt didn't workHas been getting JAKE injections at [facility] Shyla Gamble been on hydrocodon e in the past-she is aware that I cannot do chronic pain medication s out of this office and she will need to get those from pain management Requesting referral to different pain management which is covered by her insuranceE R precaution s Diabetes m ellitus screening 528385478 Z13.1 Screening for disorder 362218540 Z13.9 Adult heal th examination 991012122 Z00.01 Depression screening 171 417347 Z13.31 Obesity 303750430 E66.9 recommend healthy, well balanced mealsfocus on lean meats, fresh vegetables , fresh fruits, whole grainsredu ce fast/proce ssed foods or eating out to no more than 1-2 times per weekaim to get 30 min of exercise most days of the week- walking is a great choicealso recommend resistance training 2-3 times per week Nicotine dependence 5629 4008 F17.200 1 min spent with patient discussing risks, cessation options. Patient encouraged to quit. [id number] Gogo gerard MD [facility] [address] [facility] [address] [place] [address] 03/25/2023 10:33:19 03/25/2023 11:09:01 Asthma 256032040 J45.909 On albuterol p.r.n.Insu nazia would not cover SymbicortW ill start her on Advairshe is aware to rinse and spit after use Hyperlipidemia 20484400 E78.5 Not currently on any meds-has been on Crestor in the pastCurren tly working on diet and exercise as she is breastfeed ing Generalize d anxiety disorder 03241786 F41.1 Restart sertraline , hydroxyzin e prn-she is aware of side effects, risks, and benefitsOf fered IOP referral, she declinesSh e declines psychiatry referralRe commend counseling -name/numb ers given to patientShe can commit to safety, she will call 911 or go to the ER if she develops a crisisCall office if any change in mood or behavior Depressive disorder 3548 9007 F32.A As above Migraine 98181769 G43.90 9 Has both sumatripta n and topiramate at home-she is using these p.r.n.Migr aines have not been bothering her much lately Mitral magi ve regurgitation [id number] I34.0 Follows cardiology -Dr. Mcnair nly has to follow up prn if symptomati c now Chronic low back pain 27 1761854 M54.50 Pt didn't workHas been getting JAKE injections at [facility] Shyla Hogeus been on hydrocodon e in the past-she is aware that I cannot do chronic pain medication s out of this office and she will need to get those from pain management Requesting referral to different pain management which is covered by her insurance- has been referred to [facility] pain management ER precaution s Obesity 120920365 E66.9 recommend healthy, well balanced mealsfocus on lean meats, fresh vegetables , fresh fruits, whole grainsredu ce fast/proce ssed foods or eating out to no more than 1-2 times per weekaim to get 30 min of exercise most days of the week- walking is a great choicealso recommend resistance training 2-3 times per week Nicotine dependence 5629 4008 F17.200 1 min spent with patient discussing risks, cessation options. Patient encouraged to quit. [id number] Gogo gerard MD [facility] [place] [address] [facility] [address] [place] [address] 04/15/2023 10:47:02 04/15/2023 11:07:55 Asthma 756197700 J45.909 On albuterol p.r.n.Insu nazia would not cover SymbicortW ill start her on Advairshe is aware to rinse and spit after use Hyperlipidemia 91253951 E78.5 Not currently on any meds-has been on Crestor in the pastCurren tly working on diet and exercise as she is breastfeed ing Generalize d anxiety disorder 16481772 F41.1 on sertraline , hydroxyzin e prn-she is aware of side effects, risks, and benefitsOf fered IOP referral, she declinesSh e declines psychiatry referralRe commend counseling -name/numb ers given to patientShe can commit to safety, she will call 911 or go to the ER if she develops a crisisCall office if any change in mood or behavior Depressive disorder 3548 9007 F32.A As above Migraine 19807311 G43.90 9 Has both sumatripta n and topiramate at home-she is using these p.r.n.Migr aines have not been bothering her much lately Mitral magi ve regurgitation [id number] I34.0 Follows cardiology -Dr. Mcnair nly has to follow up prn if symptomati c now Chronic low back pain 27 7375419 M54.50 PT didn't workHas been getting JAKE injections at [facility] Herbertanabelle Gamble been on hydrocodon e in the past-she is aware that I cannot do chronic pain medication s out of this office and she will need to get those from pain management Requesting referral to different pain management which is covered by her insurance- has been referred to [facility] pain management ER precaution s Obesity 531155049 E66.9 recommend healthy, well balanced mealsfocus on lean meats, fresh vegetables , fresh fruits, whole grainsredu ce fast/proce ssed foods or eating out to no more than 1-2 times per weekaim to get 30 min of exercise most days of the week- walking is a great choicealso recommend resistance training 2-3 times per week Nicotine dependence 5629 4008 F17.200 1 min spent with patient discussing risks, cessation options. Patient encouraged to quit. Hydronephr osis due to calculus of kidney and ureter [id number] N13.2 get appt with urology- she will call today to set up apptcontin ue flomax until she sees urologywe will start her on some cipro to cover her for pyleoI went over all the signs and symptoms of urosepsis with her and stressed the importance that if she gets any sicker, she must immediatel y present to the emergency room. If she develops a worsening fever, chills, body aches, or generally feels worse or has worsening pain, she needs to go to the emergency room. We discussed has sepsis can be life-threa tening if untreated. She voiced understand ing and agrees [id number] Gogo gerard MD [facility] [address] [facility], [address] [place] [address] 07/17/2023 10:58:36 07/17/2023 11:30:58 Asthma [id number] J45.909 On albuterol p.r.n.Insu nazia would not cover Symbicorto n Advairshe is aware to rinse and spit after use Hyperlipidemia [id number] E78.5 Not currently on any meds-has been on Crestor in the pastCurren tly working on diet and exercise as she is breastfeed ing Generalize d anxiety disorder [id number] F41.1 on sertraline , hydroxyzin e prn-she is aware of side effects, risks, and benefitsOf fered IOP referral, she declinesSh e declines psychiatry referralRe commend counseling -name/numb ers given to patientShe can commit to safety, she will call 911 or go to the ER if she develops a crisisCall office if any change in mood or behavior Depressive disorder [id number] F32.A As above Migraine [id number] G43.90 9 Has both sumatripta n and topiramate at home-she is using these p.r.n.Migr aines have not been bothering her much lately Mitral magi ve regurgitation [id number] I34.0 Follows cardiology -Dr. Xu bain has to follow up prn if symptomati c now Chronic low back pain 27 [id number] M54.50 PT didn't workHas been getting JAKE injections at [facility] Shyla Lennies been on hydrocodon e in the past-she is aware that I cannot do chronic pain medication s out of this office and she will need to get those from pain management Requesting referral to different pain management which is covered by her insurance- has been referred to [facility] pain management ER precaution s Obesity [id number] E66.9 recommend healthy, well balanced mealsfocus on lean meats, fresh vegetables , fresh fruits, whole grainsredu ce fast/proce ssed foods or eating out to no more than 1-2 times per weekaim to get 30 min of exercise most days of the week- walking is a great choicealso recommend resistance training 2-3 times per week Nicotine dependence [id number] F17.200 1 min spent with patient discussing risks, cessation options. Patient encouraged to quit. Viral syndrome [id number] B34.9 push fluids, bland diet, restwill keep her home from work today and tomorrow, and then she go back on her next regularly scheduled shift which is ised if she cannot keep fluids down >24 hours, is worse or develops any abdominal pain, she should go to ER for evaluation Health Concerns Section Related Observation LastModified by Organization Detai ls LastModified Time None Recorded Concern Status LastModified by Organization Details LastModified Time None Recorded Advance Directives Directive None Recorded Payers Insurance Date Sequence Insurance Name Policy Number Policy Serra Covered Member ID Serra Member ID Guarantor Name 05/02/2023 1 [facility] (EPO) [id number] Geraldine Nevarez [id number] Rosa Nevarez 11/11/2023 1 [facility] - DOS ON OR AFTER 21 (MEDICAID REPLACEMENT - HMO) Rosa Nevarez [id number] Rosa Nevarez Notes Date Note Type Note Provider Name and Address Organization Details Recorded Time 3 text/html Rosa presents today to establish care. She is also due for her annual wellness exam. Previous PCP -none for several years [facility] , works as an [employer] in a [employer] Past hx:asthmaHLDanxietydepres sionmigrainemitral valve regurgitationchronic back and neck pain She reports she used to be on Symbicort for her asthma. She feels like she needs to go back on this. Her asthma has been worse lately with the pollen in the air. She reports this did work well for her when she took previously. She reports her anxiety and depression are stable off of medication. She does not feel like she needs meds at this time. She denies any SI or HI today. She reports she is able to care for self and her baby without any issues. She reports she used to be on rosuvastatin for her cholesterol. She has been off that for few years. She reports she has sumatriptan and topiramate at home for her migraines. She does not take them every day but she does take them as needed. She reports her migraines have not been as bad since she delivered her baby. She does have history of mitral valve regurgitation. She had been seeing Cardiology. She reports that she was told by them she only needs to see them p.r.n. if any new symptoms develop. She has a long history of chronic back and neck pain. She has previously been seeing [facility] in [place]. She is having to pay lie-[id number]-mtmuvq for that so she had to stop. She had been getting JAKE injections. She is requesting to transfer to a different pain management facility which will take her insurance. She reports she tried physical therapy multiple times in the past with no improvement. She has been on hydrocodone in the past. She denies any bladder bowel changes, denies any saddle paresthesias, denies any numbness or tingling into the extremities. She reports it is a dull ache which is present all the time. She is due for screening labs. Ernestina Lopez, BED PLACEMENT COORDINATOR-C [address] [facility], [facility] [address], [place], [address], [facility] [employer] [facility] 01/31/2023 15:32:27 3 text/html Rosa presents today to discuss a few problems. She reports her anxiety and depression have been worse lately. She has been having panic attacks. Previously she was on sertraline in this worked well for her. She would like to restart that. She is also interested in seeing a counselor. She denies any SI or HI today. She reports her asthma has been quite bad recently, she has been having daily asthma attacks with the heat. Last visit, I started her on Symbicort, however she tells me that her insurance would not cover it. Will get something else sent in for her. She reports she does have a nebulizer at home and has been using that which has been helpful. She does continue to smoke. Is not interested in cessation at this time. [employer] [address], [place], [address], [facility] [employer] [facility] 03/25/2023 11:23:55 3 text/html Sophia presents today for follow-up. Last visit, we restarted her sertraline. She reports her mood is much improved. She feels like this is a good dose for her. She denies any SI or HI today. She had an ER visit last Friday for kidney stones. She was diagnosed with hydronephrosis. She was started on hydrocodone, ibuprofen, and Flomax. Per patient, she was told they could not refer to urologist as they did not have 1 on staff.She was not started on antibiotic. She reports that she has had a low-grade temp up to 99. She has had some chills but not today. She is still having the flank pain. She did have some fat stranding on her CT scan. [employer] [address], [address], [place], [address], [employer] [facility] [employer] 04/15/2023 11:17:02 3 text/html Rosa presents today for follow-up. She reports mood is well controlled on the current dose of sertraline. She denies any SI or HI. She reports norovirus is going around her work. She reports she had vomiting and diarrhea on Friday. Since then those symptoms have stopped, however she is still feeling fatigued and weak. She is supposed to go back to work tonight. She is able to tolerate p.o. food and fluids. She denies any abdominal pain. She did have a low-grade fever yesterday but that has resolved today. She had a negative covid test. She has been referred to pain management for the chronic low back pain. Transportation has been an issue for her in the past, however this is the only pain management place I can refer her to due to her insurance. She denies any bladder bowel changes, denies any saddle paresthesias, denies any numbness or tingling into the extremities. Ernestina Lopez, BED PLACEMENT COORDINATOR-C [address] [facility], [facility] [address], [place], [address], [place] [facility] 07/17/2023 12:39:09 OBGyn Episode No OBEpisode recorded.
--- NOTE | 2025-01-20 07:18 | WPDHPUPDATE1 ---
History and Physical Update Update Date/Time: 01/20/25 07:18 History and Physical has been reviewed, including an updated exam of the patient. There are NO changes in the patient's condition. Risks, benefits, and alternatives have been discussed and questions answered. Patient agrees to proceed with procedure.
--- NOTE | 2025-01-20 08:47 | P.PNAN_ITS ---
Anes - Initial Pre Proc Eval Procedure: Operation Date: 01/20/25 10:15 Proposed Procedures p Hysteroscopy Dilation and Curettage with Usha Endometrial Ablation - Artemio Mcneil MD Date/Time: 01/20/25 08:47 Surgeon: Artemio Mcneil MD Pre Op Diagnosis: abnormal uterine bleeding Patient Data Age: 29 Gender: F Height: 1.68 m Weight: 95.5 kg Allergies Allergy/AdvReac Type Severity Reaction Status Date / Time No Known Allergies Allergy Verified 01/11/25 16:02 Home Medications ?Medication ?Instructions ?Recorded ?Confirmed ?Type albuterol sulfate 90 mcg/actuation 2 puff inhalation QID PRN Wheezing 09/21/22 01/11/25 History aerosol inhaler ibuprofen 600 mg tablet 600 mg PO Q6H PRN Cramping #30 tabs 09/27/22 01/11/25 Rx budesonide-formoterol HFA 80 1 inh inhalation Q12H 12/24/24 01/11/25 History mcg-4.5 mcg/actuation aerosol inhaler (Symbicort) Patient hx anesthesia problems: none Family hx anesthesia problems: none Results Review: All pre-operative results and documents have been reviewed as part of the pre- operative evaluation. [facility] Past Medical History Medical History Osteoarthritis GERD (gastroesophageal reflux disease) Abnormal glucose tolerance in Encounter for IUD removal 02/09/18 Mirena removal Encounter for IUD insertion 04/30/17 Mirena insertion Anxiety Depression Asthma Surgical History Surgical History H/O bilateral salpingectomy (11/28/22) Bilateral laparoscopic salpingectomy Family History Family History Father Heart disease Hypertension Alcohol abuse Mother Hypertension Diabetes mellitus Cerebrovascular accident Grandparent Diabetes mellitus paternal grandfather maternal grandmother Social History Social History Smoking packs per day: 0.5 Smoking cigarettes per day: 10.0 Years smoked: 13 Smoking pack-years: 6.50 Smoking status: Current every day smoker Tobacco type: cigarettes Alcohol intake: never Substance use: current Substance use type: marijuana Lack of Transportation: No Lack of Food: Never True Current Housing: I Have Housing Concerned About Future Housing: No Difficulty Paying Gas/Electric Bills: No Difficulty Paying for Meds: No Currently Unemployed: No Education: Associate Degree Difficulty w/ Childcare or Family Care: No Living arrangements: with family Additional living arrangements comments: Occupation/Education: occupation Additional occupation/education comments: RN Gender identity (if verbalized by the patient): Female Sexual Orientation (if Verbalized by the Patient): Straight or Heterosexual Spiritual care concerns: No Anes - Eval Final PreProcedure Day of Procedure 01/20/25 08:47 Patient weight: obese Heart: regular rate and rhythm Lungs: decreased breath sounds Airway: Mallampati scale class II Neurological: alert and oriented Last oral intake: >/= 8 hours ASA classification: III Emergent: no Anesthetic plan: proceed Anesthesia type and monitoring: general GIVS and standard monitoring Results Review: All pre-operative results and documents have been reviewed as part of the pre- operative evaluation. Informed Consent: The patient's anesthetic plan and its attendant risks and benefits were discussed with the patient/family/POA. Questions were solicited and answers provided to the satisfaction of the patient/family/POA.
[2025-01-20] MEDS: ACETAMINOPHEN 500 MG TABLET 1000 MG PO (09:05)
[2025-01-20] MEDS: LACTATED RINGERS 1,000 ML 30 ML IV CONT (09:06)
[2025-01-20 09:07] VITALS: BP 108/78; PULSE 84; RESP 18; TEMP 36.6; O2SAT 100
[2025-01-20 09:12] LABS: BEDSIDEPREGUCG Negative (Negative)
[2025-01-20] MEDS: ceFAZolin 2 GM/D5W 50 ML 2 GM/50 ML BAG IVPB (09:56)
--- NOTE | 2025-01-20 10:14 | S_PTH ---
PATIENT: Rosa Nevarez LOC: [facility] U#:[id number] AGE/SX: 29/F ROOM: RE01/20/[address]: Artemio Mcneil MD : 1995 BED: DIS: 01/20/2025 SPEC #: [id number] RECD: 01/20/25 10:53 STATUS: JIGNESH REQ #: [id number] LOWELL: 01/20/25 10:[address]: Artemio Mcneil DEPT: [facility] Surgical RECD BY: Teresa Parrish ENTERED: 01/20/25 10:54 SP TYPE: Surgical OTHR DR: Sarahi Centeno, PA-C Tissues: A - Endometrial Curettings Procedures: Hematoxylin and Eosin Stain Gross and Microscopic Level 4
--- NOTE | 2025-01-20 10:20 | W.PM.PROC2 ---
Procedure Note - Detailed Date of Procedure 01/20/25 Pre-op Diagnosis 1. Menometrorrhagia 2. Dysmenorrhea Post-op Diagnosis Same Procedure Performed 1 hysteroscopy with uterine curettings 2. Endometrial ablation Surgeon Artemio Mcneil MD Anesthesia MAC Findings Thickened endometrial cavity. No abnormalities anatomically. Description of Procedure Patient prepped draped usual manner for this procedure. Cervix was dilated to allow the hysteroscope to be placed. Hysteroscopic exam revealed slightly thickened tissue with no polyps or fibroids appreciated. Curettings were obtained and sent to pathology. Usha instrument was placed, cavity assessment was performed, and instrument was activated. Hysteroscopic exam after the complete cycles showed good destruction throughout. Patient was then sent the recovery room in stable condition. Estimated Blood Loss 10 Drains No Packing No Pathology Yes Complications No immediate complications Condition Stable Disposition PACU [facility] Billing Surgery - Charge Forward: Surgery Billing
[2025-01-20 10:25] VITALS: BP 112/68; PULSE 75; RESP 14; O2SAT 98
[2025-01-20 10:55] VITALS: BP 109/73; PULSE 62; RESP 20
[2025-01-20] MEDS: oxyCODONE HCL (*CRX) 5 MG TAB IR PO (11:03)
[2025-01-20] MEDS: fentaNYL CITRATE INJ (*CRX) 100 MCG/2 ML VIAL 25 MCG IV PUSH ×2 (11:10→11:15)
[2025-01-20 11:25] VITALS: BP 121/65; PULSE 75; RESP 20
== END 2025-01-20 11:31 | disposition home or self-care (01) ==
PROVIDERS: PCP Physician Assistant; Visit Provider Obstetrics & Gynecology
PROC: 0U5B8ZZ Destruction of Endometrium, Via Natural or Artificial Opening Endoscopic (ICD-10-PCS; CPT 58563; principal; 2025-01-20 10:15)
DX: N92.1 Excessive and frequent menstruation with irregular cycle (principal); N94.6 Dysmenorrhea, unspecified; F17.210 Nicotine dependence, cigarettes, uncomplicated; F12.90 Cannabis use, unspecified, uncomplicated; E66.9 Obesity, unspecified; Z68.34 Body mass index [BMI] 34.0-34.9, adult
CPT/HCPCS: 58563; 88305; A9270; J0690; J2003; J2250; J2704; J3010; J7120